=== PATIENT | male | born 1965 | race Caucasian/White ===

== ENCOUNTER 2022-11-09 23:35 | Inpatient (IN) | payer OTHER ==
[~2022-11-09] VITALS: Ht 172.7 cm; Wt 81.6 kg
[2022-11-09 23:46] VITALS: BP 181/107
[2022-11-09] MEDS ORDERED: INTUBATION KIT MC ONE (23:58)
[2022-11-10] VITALS (25 sets, daily range): BP systolic 111–201; BP diastolic 54–103
[2022-11-10] MEDS ORDERED: KETAMINE 500 MG/5 ML VIAL IVP ONE (00:05)
[2022-11-10] MEDS ORDERED: KETAMINE 500 MG/5 ML VIAL ONE (00:06)
[2022-11-10] MEDS ORDERED: NACL 0.9% 1,000 ML IV ONE (00:15)
[2022-11-10] MEDS ORDERED: PROPOFOL 1000 MG/100 ML PREMIX 100 ML IV ONE ×3 (00:21→06:48)
[2022-11-10 01:04] LABS: BASOPHILS % (AUTO) 0.4 % (0.0-2.0); EOSINOPHILS # (AUTO) 0.3 K/uL (0-0.4); EOSINOPHILS % (AUTO) 2.6 % (0.0-4.0); HEMATOCRIT 29.2 % (36-52); HEMOGLOBIN 9.6 g/dL (12.0-18.0); LYMPHOCYTES # (AUTO) 0.7 K/uL (2.0-11.5); LYMPHOCYTES % (AUTO) 5.8 % (20.5-51.1); MEAN CORPUSCULAR HEMOGLOBIN 31 pg (27-31); MEAN CORPUSCULAR HGB CONC 33 g/dL (33-37); MEAN CORPUSCULAR VOLUME 95.6 fL (80-94); MONOCYTES # (AUTO) 0.5 K/uL (0.8-1.0); MONOCYTES % (AUTO) 3.8 % (1.7-9.3); NEUTROPHILS # (AUTO) 11.3 K/uL (1.8-7.7); NEUTROPHILS % (AUTO) 87.4 % (42.2-75.2); PLATELET COUNT (AUTO) 327 K/uL (140-450); RED BLOOD CELL COUNT(AUTO) 3.06 MIL/uL (4.20-6.10); WHITE BLOOD COUNT (AUTO) 12.9 K/uL (4.8-10.8)
--- NOTE | 2022-11-10 01:05 | NUR ---
PT INTUBATED ORALLY DUE TO INABILITY TO RESECURE THE TRACH SITE AT [address] ANH PARSONS. I WAS SIZE 8 AND 22 AT TEETH. CHEST XRAY CONFIRMED POSITIVE PLACEMENT.SEDATION STARTED
[2022-11-10 01:38] LABS: ALBUMIN 2.2 g/dL (3.4-5.0); ANION GAP 10.8 (8-16); ASPARTATE AMINOTRANSFERASE 47 U/L (15-37); CARBON DIOXIDE 28.9 mmol/L (21-32); CHLORIDE 113 mmol/L (98-107); CREATININE 0.6 mg/dL (0.6-1.3); GFR ARICAN-AMERICAN 177 mL/min (>90); GLUCOSE 139 mg/dL (74-106); POTASSIUM 3.7 mmol/L (3.5-5.1); SODIUM SERUM 149 mmol/L (136-145); TOTAL BILIRUBIN 0.3 mg/dL (0.0-1.0); UREA NITROGEN, BLOOD 32 mg/dL (7-18)
[2022-11-10] MEDS ORDERED: [UNRECOGNIZED DRUG - CODE] PO (01:38)
[2022-11-10] MEDS ORDERED: CLOP75TA55 PO (01:38)
[2022-11-10] MEDS ORDERED: LEVE100S26 IV (01:38)
[2022-11-10] MEDS ORDERED: LANS15EC28 PO (01:38)
[2022-11-10] MEDS ORDERED: ATOR40TA PO (01:38)
[2022-11-10] MEDS ORDERED: AMLO10TA PO (01:38)
[2022-11-10] MEDS ORDERED: ASPI-1749 PO (01:38)
[2022-11-10] MEDS ORDERED: HYDR100T49 PO (01:38)
[2022-11-10] MEDS ORDERED: LOSA100T2 PO (01:38)
[2022-11-10] MEDS ORDERED: ACET-1182 PO (01:38)
[2022-11-10] MEDS ORDERED: MAGN400S60 PO (01:38)
[2022-11-10] MEDS ORDERED: DOCU-299 PO (01:38)
[2022-11-10] MEDS ORDERED: TUBE5SOL28 TD (01:38)
[2022-11-10] MEDS ORDERED: HUM SUBQ (01:38)
[2022-11-10] MEDS ORDERED: BISA-218 RC (01:38)
[2022-11-10] MEDS ORDERED: [UNRECOGNIZED DRUG - CODE] SUBQ (01:38)
[2022-11-10] MEDS ORDERED: CARV6.25 PO (01:38)
--- NOTE | 2022-11-10 02:10 | NUR ---
0015 pt came in by paramedics from [facility]. pt had pulled out his trach and facility could not put it back in.dr camacho replaced trach but vent was unable to give volumes and pt was hard to bag. pt needed to be orally intubated. size 7.0 tube at 22lip. pt was put on prvc 18 vt 600 peep5 fio2 at 100%. pt was lavaged and red bloody secretions on return. pt was getting good volumes on vent post sxning
[2022-11-10] MEDS ORDERED: NACL 0.9% 1,000 ML IV SCH (02:55)
[2022-11-10] MEDS ORDERED: PIPERACILLIN/TAZOBACTAM 3.375 GM in DEXTROSE 5% 50 ML IV ONE (02:55)
[2022-11-10] MEDS ORDERED: MAGNESIUM OXIDE 400 MG TAB PO PRN (02:55)
[2022-11-10] MEDS ORDERED: POTASSIUM CHLORIDE 10 MEQ TABER PO PRN (02:55)
[2022-11-10] MEDS ORDERED: MORPHINE SULFATE 4 MG/ML SYR IVP PRN (02:55)
[2022-11-10] MEDS ORDERED: MAG SULF 2000 MG/WATER PREMIX 50 ML IV PRN (02:55)
[2022-11-10] MEDS ORDERED: KCL 20 MEQ IN 100 mL PREMIX 200 ML IV PRN (02:55)
[2022-11-10] MEDS ORDERED: ACETAMINOPHEN 325 MG TAB PO PRN (02:55)
[2022-11-10] MEDS ORDERED: VANCOMYCIN PER PHARMACY MC PRN (02:55)
[2022-11-10] MEDS ORDERED: fentaNYL citrate 1 MG in NACL 0.9% 80 ML IV PRN (03:00)
--- NOTE | 2022-11-10 03:14 | NUR ---
lowered fio2 to 50%
[2022-11-10] MEDS ORDERED: VANCOMYCIN 1GM/DEXT 5% PREMIX 200 ML IV SCH (04:00)
--- NOTE | 2022-11-10 04:38 | NUR ---
RECEIVED PT. FROM ER, REPORT GIVEN BY TEODORO POOLE. PT. INTUBATED WITH VENT SETTING A/C PRVC RATE 18, TV 600, FIO2 40%, PEEP 4. BILATERAL LUNG SOUNDS HYPOACTIVE. ON SINUS RHYTHM ON THE MONITOR. IV 20G TO LEFT UPPER ARM, INFUSING PROPOFOL DRIP AT 30MCG/KG/MIN. IV TO RIGHT AC 20G RUNNING NS AT 80 ML/HR. PT. WITH GASTRIC TUBE CLAMPED, PT. NPO ORDERED. ABDOMINAL SOUNDS HYPOACTIVE. SKIN INTACT. ON BILATERAL SOFT WRIST RESTRAINT. CONDOM CATHETER INTACT AND PATENT WITH YELLOW COLOR URINE. CT OF THE CHEST WITHOUT CONTRAST DONE IN ER. MRSA NARES SENT TO THE LAB. PLACED PT. IN COMFORTABLE POSITION. PROVIDED SAFE AND QUIET ENVIRONMENT. WILL CONTINUE TO MONITOR.
--- NOTE | 2022-11-10 04:46 | NUR ---
Patient will be admitted to care of DR MA. Admited to ICU. Will go to room 2. Belongings list completed. Report to ROSE VALERIO.
--- NOTE | 2022-11-10 05:00 | NUR ---
0437 TRANSFERED PT TO ICU BED 2 ON CARESCAPE VENT.LOWERED FIO2 TO 40%. PT STABLE ON VENT
[2022-11-10] MEDS: PIPERACILLIN/TAZOBACTAM 3.375 GM in DEXTROSE 5% 50 ML IV SCH ×3 (06:00→18:07)
[2022-11-10] MEDS ORDERED: PIPERACILLIN/TAZOBACTAM 3.375 GM VIAL IV ONE (06:38)
[2022-11-10] MEDS: PROPOFOL 1000 MG/100 ML PREMIX 100 ML IV PRN ×2 (07:28→18:38)
--- NOTE | 2022-11-10 07:35 | NUR ---
ENDORSED PT. TO ANGELA MCKENNA RN FOR CONTINUITY OF CARE.
--- NOTE | 2022-11-10 07:40 | NUR ---
RECEIVED PT INTUABATED 7.0/25 LIP. TOLERATING VENT SETTINGS. NSR ON MONITOR. CONDOM CATH FC DRAINING TO GRAVITY. IV INFUSING PROPOFOL AND FLUIDS PER ORDER. NAD.
[2022-11-10] MEDS ORDERED: VANCOMYCIN 1,500 MG in DEXTROSE 5% 500 ML IV SCH (08:00)
[2022-11-10] MEDS ORDERED: ROCURONIUM 50 MG/5 ML VIAL IV ONE (08:00)
--- NOTE | 2022-11-10 09:11 | NUR ---
PATIENT HAS BEEN SCREENED AND CATEGORIZED HIGH NUTRITION RISK. PATIENT WILL BE SEEN WITHIN 1-2 DAYS OF ADMISSION. FNS REFERRAL RECEIVED FOR INTUBATION ON 11/10/22. REVIEWED BY EMMA MENDOZA RD
--- NOTE | 2022-11-10 09:11 | NUR ---
RADIOLOGIST CALLED RESULTS OF SMALL BILATERAL PNEUMO LESS THAN 5% DR MENDOZA MADE AWARE. PENDING FURTHER ORDERS.
[2022-11-10] MEDS: PANTOPRAZOLE 40 MG INJ VIAL IVP SCH (09:20)
--- NOTE | 2022-11-10 09:31 | NUR ---
DR AGUILA AT BEDSIDE, MADE AWARE OF RADIOLOGIST FINDINGS. NEW ORDERS NOTED.
--- NOTE | 2022-11-10 12:00 | NUR ---
RIGHT AC IV NOTED INFILTRATED. IV REMOVED ARM ELEVATED WITH WARM COMPRESS
--- NOTE | 2022-11-10 15:31 | NUR ---
11/10/22 INITIAL ASSESSMENT COMPLETED PLEASE REFER TO NUTRITION ASSESSMENT UNDER CARE ACTIVITY FOR ESTIMATED NUTRITIONAL NEEDS. 1. RECOMMEND GLUCERNA 1.2 WITH A GOAL RATE OF 55ML/HR -FWF: 150ML Q6H OR PER MD -START AT 20ML/HR AND INCREASE BY 10ML Q4H TOLERATED -WITH PROPOFOL @ 15.758ML/HR, PT WILL RECEIVE 2000KCAL AND 79G PROTEIN MEETING 95% OF ESTIMATED KCAL AND 100% OF ESTIMATED PROTEIN NEEDS; ADEQUATE 2. MONITOR GASTRIC RESIDUALS, GI SYMPTOMS AND NUTRITION-RELATED LAB VALUES 3. RD TO FOLLOW-UP 2-3 DAYS, HIGH RISK EMMA MENDOZA RD
--- NOTE | 2022-11-10 16:21 | NUR ---
DC PLANNING ADMITTED TO ICU A 57Y.O. MALE PATIENT FOR HYPOXIA,RESP.FAILURE ,ACUTE TRACHEOSTOMY DISLODGEMENT .HX OF RECENT CVA FROM [facility] AND RECENT ADMISSION AT [facility]/P TRACHEOSTOMY 11/04/22. 11/[address] SHOWS BILATERAL PNEUMONIA. ON VANCO AND PIPERACILLIN.PULMO,CARDIO FOLLOWING.INTUBATED .ON PROPOFOL DRIP.DC PLAN TENTATIVE DISCHARGE BACK TO [facility] WHEN PATIENT RESPONDS TO [place].CM TO FOLLOW. Addendum: 11/12/22 at 1519 by BRIGITTE GUERRERO CM DC PLANNING STILL INTUBATED. OPENS EYES WHEN NAME IS CALLED.ON PROPOFOL DRIP.SON AT BEDSIDE.[facility] GIVEN FOR SUBACUTE FACILITY PLACEMENT.SON DOES NOT WANT HIS DAD TO GO BACK TO [facility].SCHEDULED FOR TRACHEOSTOMY IN AM.CM TO FOLLOW. Addendum: 11/16/22 at 1706 by BRIGITTE GUERRERO CM DC PLANNING TRACHEOSTOMY NOT DONE.TRACHEOSTOMY UNSUCCESSFUL.PATIENT REQUIRES A HIGHER LEVEL OF CARE FOR TRACHEOSTOMY REPAIR.CLINICALS FAXED TO [facility] AND [facility] AND [facility] NOT ACCEPTING TRANSFER.[facility] NOT DOING ABOVE REPAIR.[facility] (WILL CALL) ARRANGED PENDING TRANSFER HOSPITAL ACCEPTANCE.UNIT INFORMED. Addendum: 11/16/22 at 1709 by BRIGITTE GUERRERO CM DC PLANNING LATE ENTRY SPOKE WITH MESERET DOUGLAS AND UPDATED OF PATIENT'S PLAN FOR TRANSFER TO HIGHER LEVEL OF CARE. Addendum: 11/17/22 at 1050 by BRIGITTE GUERRERO CM DC PLANNING GOT A CALL FROM TRANSFER CENTER AT [place] AROUND 0900.[place] IS IN FULL CAPACITY THEN MESSAGE TAKEN FROM [facility] AT SAME HOS[facility] AROUND 1000 .STILL REVIEWING THE CHART AND ASKED FOR DR. LYNETTE PEREZ'S PHONE NUMBER. Addendum: 11/18/22 at 1058 by BRIGITTE GUERRERO CM DC PLANNING CLINICALS FAXED TO [facility] AND [facility] .AWAITING CALL BACK. PATIENT ON TUBE FEEDS,ZOSYN AND PROPOFOL DRIP.CM TO FOLLOW. Addendum: 11/18/22 at 1616 by BRIGITTE GUERRERO CM DC PLANNING PATIENT IS EXTUBATED.ON 35L-28%NC .TUBE FEEDINGS IN PROGRESS. AT BEDSIDE.MESERET DOUGLAS UPDATED OF PATIENT'S CONDITION.CM TO FOLLOW. , Addendum: 11/19/22 at 1240 by BRIGITTE GUERRERO CM DC PLANNING ON HI FLOW O2 AT 25 LITERS-28% .PT SEEN AND NO DISTRESS NOTED.NO SURGICAL INTERVENTION INDICATED FOR NOW.DC PLAN -BACK TO SUBACUTE WHEN PATIENT CONTINUES TO IMPROVE.WILL FOLLOW. Addendum: 11/20/22 at 0915 by BRIGITTE GUERRERO CM DC PLANNING DOWNGRADED TO TELEMETRY STATUS 11/19/22 THEN TRANSFERRED TO TELEMETRY UNIT .STILL ON HI FLOW 25L-28% FIO2.DC PLAN-FOR TRANSFER TO [facility]ACUTE FACILITY WHEN ACCEPTED[place] [place]SF[place].CM TO FOLLOW. Addendum: 11/20/22 at 1114 by BRIGITTE CESAR CM DC PLANNING PT IS ON RA .ALERT AND FOLLOWS COMMAND.WITH RIGHT SIDED WEAKNESS. TRACH STOMA ALMOST CLOSING.DISCUSSED WITH THE DC PLAN FOR SNF VS .SUBACUTE.PT CAN GO TO SNF.PT EVAL REQUESTED.FAMILY TO BE NOTIFIED OF THE DC PLAN.CM TO FOLLOW. Addendum: 11/20/22 at 1238 by BRIGITTE GUERRERO CM DC PLANNING LATE ENTRY: TALKED TO SON ON THE PHONE RE SNF PLACEMENT.REQUESTING [facility] FOR HIS DAD.CLINICALS FAXED TO SAME SNF. Addendum: 11/23/22 at 1143 by BRIGITTE GUERRERO CM DC PLANNING [facility] DENIED PATIENT'S TRANSFER.PATIENT NEEDS LOWER LEVEL OF REHAB.MILA FROM [facility] TO UPDATE THE SN.WILL LOOK FOR OTHER [facility] SNF.CM TO FOLLOW. Addendum: 11/23/22 at 1357 by Usha Joshi RN DC PLANNING: CM SPOKE WITH PATIENT'S AND SON NOTIFIED THEM [facility] DECLINED PATIENT. FAMILY ACCEPTED THE DECISION AND AGREED TO GO TO SNF HOWEVER REQUESTED THE SNF TO BE CLOSE TO [place]. [facility] CM TO FOLLOW Addendum: 11/23/22 at 1620 by Usha Joshi RN DC PLANNING: RECEIVED A CALL FROM [facility] SPOKE WITH [facility] STATED UNABLE TO TAKE PATIENT, TAYA MCFADDENNAS STILL REVIEWING. FAXED TO [facility], [facility], AND [facility]I [facility]. CM TO FOLLOW Addendum: 11/24/22 at 1225 by ALLAN PETIT CM FAXED TO: [facility], [facility], [facility]. WILL FOLLOW UP WHEN I GET FAX CONFIRMATION. Addendum: 11/24/22 at 1503 by Usha Joshi RN DC PLANNING: RECEIVED A CALL FROM [facility] M[facility]RA SPOKE WITH GELA STATED LONG PATIENT HAS A DC PLAN AFTER SNF WILL ACCEPT PATIENT. CM SPOKE WITH SON KINGSTON AND PT'S THE PLAN IS TO TAKE HIM HOME ONCE THERAPY IS DONE. CALLED [facility] FOR AUTHORIZATION. PATIENT CAN GO TO ROOM 111A AWAITING FOR AUTH. CM TO FOLLOW
--- NOTE | 2022-11-10 17:00 | NUR ---
PT RESTING NO CHANGES NOTED.
--- NOTE | 2022-11-10 18:56 | NUR ---
SPOUSE AT BEDSIDE UPDATED ON CARE. NAD.
--- NOTE | 2022-11-10 19:15 | NUR ---
ASSUMED CARE OF PT.INITIAL ASSESSMENT COMPLETED.ORALLY INTUBATED.AC/PRVC MODE FIO2 40% [id number] RATE 16 PEEP 5.W/PERIPHERAL IV TO MONY G20 INFUSING PROPOFOL AT 30MCG/KG/MIN.DRY WT 89KG.AND LT F/A G 20 INFUSING NS AT ML/HR.W/GTUBE IN PLACE, 40ML RESIDUALS NOTED.ON CONTINUOUS TF GLUCERNA 1.2 ORDERED.W/CONDOM CATHETER ALSO INPLACE, NO URINE OUTPUT NOTED TO DRAINAGE BAG.FLACC 0.BILATERAL SOFT WRIST RESTRAINTS ALSO NOTED.NO INJURIES NOTED AT THIS TIME.WILL CONTINUE TO CLOSELY MONITOR PT.
[2022-11-10] MEDS ORDERED: VANCOMYCIN 1.25GM PREMIX 250 ML IV SCH (20:00)
--- NOTE | 2022-11-10 20:00 | NUR ---
VISITED BY , UPDATED ON PTS PRESENT CONDITION.QUESTIONS ANSWERED
[2022-11-10] MEDS: carvediloL 6.25 MG TAB GT SCH (20:55)
[2022-11-10] MEDS: levETIRAcetam 100 MG/ML ORASYR GT SCH (20:56)
--- NOTE | 2022-11-10 22:28 | NUR ---
PT APPEARS COMFORTABLE.FLACC 0.REPOSITIONED.
[2022-11-11] VITALS (26 sets, daily range): BP systolic 118–175; BP diastolic 57–76
--- NOTE | 2022-11-11 | NUR ---
AFEBRILE,NO SOB NOTED ON FIO2 40% ETT/VENT.ORAL CARE USING VAP KIT RENDERED.THICK WHITISH SECRETIONS NOTED.FLACC 0.REPOSITIONED.
[2022-11-11] MEDS: PIPERACILLIN/TAZOBACTAM 3.375 GM in DEXTROSE 5% 50 ML IV SCH ×4 (00:25→17:24)
[2022-11-11] MEDS: PROPOFOL 1000 MG/100 ML PREMIX 100 ML IV PRN ×3 (01:00→16:23)
--- NOTE | 2022-11-11 02:30 | NUR ---
PTS CONDITION REMAINS UNCHANGED.NO SOB NOTED.NO PAIN NOTED.REPOSITIONED.
--- NOTE | 2022-11-11 04:00 | NUR ---
PT AFEBRILE.STILL ON FIO2 40%/ETT TO VENT.NO SOB NOTED.FLACC 0.
[2022-11-11 05:22] LABS: BASOPHILS % (AUTO) 0.1 % (0.0-2.0); EOSINOPHILS # (AUTO) 0.4 K/uL (0-0.4); EOSINOPHILS % (AUTO) 3.5 % (0.0-4.0); HEMATOCRIT 22.4 % (36-52); HEMOGLOBIN 7.6 g/dL (12.0-18.0); LYMPHOCYTES # (AUTO) 1.2 K/uL (2.0-11.5); MEAN CORPUSCULAR HEMOGLOBIN 32 pg (27-31); MEAN CORPUSCULAR HGB CONC 34 g/dL (33-37); MEAN CORPUSCULAR VOLUME 94.4 fL (80-94); MONOCYTES # (AUTO) 0.5 K/uL (0.8-1.0); MONOCYTES % (AUTO) 5.1 % (1.7-9.3); NEUTROPHILS # (AUTO) 8.2 K/uL (1.8-7.7); NEUTROPHILS % (AUTO) 79.3 % (42.2-75.2); PLATELET COUNT (AUTO) 258 K/uL (140-450); RED BLOOD CELL COUNT(AUTO) 2.38 MIL/uL (4.20-6.10); WHITE BLOOD COUNT (AUTO) 10.3 K/uL (4.8-10.8)
--- NOTE | 2022-11-11 05:30 | NUR ---
MORNING CARE DONE.SECRETIONS SUCTIONED, MODERATE AMT OF CREAMY SECRETIONS/RTT AND ORAL.PT REPOSITIONED.
[2022-11-11 06:06] LABS: ALBUMIN 1.8 g/dL (3.4-5.0); ANION GAP 12.4 (8-16); CARBON DIOXIDE 25.9 mmol/L (21-32); CREATININE 0.7 mg/dL (0.6-1.3); POTASSIUM 3.3 mmol/L (3.5-5.1); TOTAL BILIRUBIN 0.3 mg/dL (0.0-1.0)
--- NOTE | 2022-11-11 07:15 | NUR ---
Received pt sedated. ETT to vent settings AC PRVC TV 550 rate 16 PEEP 5 FiO2@40%. Sinus rhythm on monitor. G-tube intact and patent infusing Glucerna 1.2@55ml/hr with FWF 150 Q6hr. Condom catheter in place draining to bedside drainage. Peripheral IV 20 gauge on left upper arm intact and patent infusing propofol @30mcg/kg/min. Peripheral IV 20 gauge on left hand intact and patent infusing NS@TKO. Bilat soft wrist restraints in place. Safety precautions in place.
--- NOTE | 2022-11-11 07:20 | NUR ---
REPORT GIVEN TO TRISTAN VALERIO FOR CONTINUITY OF CARE
[2022-11-11] MEDS: carvediloL 6.25 MG TAB GT SCH ×2 (08:43→20:37)
[2022-11-11] MEDS: ATORVASTATIN 20 MG TAB PO SCH (08:43)
[2022-11-11] MEDS: levETIRAcetam 100 MG/ML ORASYR GT SCH ×2 (08:44→20:37)
[2022-11-11] MEDS: DOCUSATE 100 MG/10 ML UDC PO SCH (08:44)
[2022-11-11] MEDS: amLODIPine 5 MG TAB PO SCH (08:44)
[2022-11-11] MEDS: LOSARTAN 50 MG TAB PO SCH (08:44)
[2022-11-11] MEDS: BROMOCRIPTINE 2.5 MG TAB GT SCH (08:45)
[2022-11-11] MEDS: PANTOPRAZOLE 40 MG INJ VIAL IVP SCH (08:45)
[2022-11-11] MEDS ORDERED: ASPIRIN 81 MG TAB.CHEW GT SCH (09:00)
[2022-11-11] MEDS ORDERED: CLOPIDOGREL 75 MG TAB GT SCH (09:00)
--- NOTE | 2022-11-11 09:00 | NUR ---
Seen and examined by Dr. Cristina. No new orders. Addendum: 11/11/22 at 1126 by Mckenzie Aburto RN Pt to start sedation vacation.
[2022-11-11] MEDS: POTASSIUM CHLORIDE 20% 40 MEQ/15 ML UDC GT PRN (09:07)
--- NOTE | 2022-11-11 09:39 | NUR ---
Contacted Dr. Altman regarding consult for tracheostomy. Dr. Altman made aware of pulmo recommendation.
[2022-11-11] MEDS ORDERED: CLONIDINE HYDROCHLORIDE 0.1 MG TAB GT SCH ×2 (13:50→14:05)
--- NOTE | 2022-11-11 14:19 | NUR ---
PT. WITH LOW GER SCALE AT MODERATE TO HIGH RISK, CONTINUE TO FOLLOW PRESSURE INJURY PREVENTION INTERVENTIONS. -POSITIONING: TURN AND REPOSITION PATIENT Q 2H OR SOONER USE PILLOWS TO KEEP BONY PROMINENCES FROM DIRECT CONTACT WITH SURFACES USE REPOSITIONING WEDGES TO PROVIDE 30-DEGREE ANGLE FOR SIDE LYING POSITIONS OFFLOADING OR FOAM DRESSING TO ALL TUBING TO PREVENT MEDICAL DEVICES RELATED PRESSURE INJURY -RE-EVALUATING AND MANAGING INCONTINENCE MONITOR SKIN CONDITION DURING POSITION CHANGE DO NOT MASSAGE REDNESS, BONY PROMINENCES FREQUENT FLORENCE-CARE AND PROVIDE BARRIER CREAMS PRN IF SOILING MOISTURE CONTROL BY OFFER BED MURRAY/URINAL /ABSORBENT PAD TO WICK AND HOLD MOISTURE KEEP SKIN DRY AND PROTECT FROM FRICTION -MANAGE FRICTION/SHEAR/MOBILITY KEEP HOB AT THE LOWEST LEVEL OF ELEVATION NO MORE THAN 30 DEGREE UNLESS OTHERWISE CONTRAINDICATED USE LIFT SHEET OR TRANSFER DEVICE TO MOVE PATIENT AND PREVENT LATERAL SHEER. PROTECT HEELS, ELBOWS BONY PROMINENCES WITH SKIN BERRIES OR FOAM DRESSING IF EXPOSED TO FRICTION OFFLOAD BILATERAL HEELS BY PLACING PILLOWS UNDER CALVES AT ALL TIMES, UNLESS OTHERWISE CONTRAINDICATED -PRESSURE REDISTRIBUTION SURFACE THERAPY CAROLE ISOFLEX MATTRESS -NUTRITION: PLEASE FOLLOW RD RECOMMENDATIONS AND OFFER NUTRITION SUPPLEMENTS IF ORDERED. PLEASE CONTACT WOUND CARE NURSE FOR ANY QUESTION AND CHANGE OF WOUND CONDITION.
--- NOTE | 2022-11-11 16:30 | NUR ---
FRANKIE Pardo at bedside examining patient. Reported pitting edema on right upper and lower extremities.
[2022-11-11] MEDS: BLOOD GLUCOSE MONITORING 1 DEV DEV FS SCH (17:29)
[2022-11-11] MEDS: INSULIN LISPRO SLIDING SCALE 100 UNITS/ML VIAL SUBQ PRN (17:30)
--- NOTE | 2022-11-11 19:13 | NUR ---
Endorsed to shift lab technician nurse Jeaneth for continuity of care.
--- NOTE | 2022-11-11 19:30 | NUR ---
ASSUMED CARE OF PT.INITIAL ASSESSMENT COMPLETED.ORALLY INTUBATED.AC/PRVC MODE FIO2 24% TV550 RATE 16 PEEP 5.W/PERIPHERAL IV TO MONY G20 INFUSING PROPOFOL AT 15MCG/KG/MIN.DRY WT 89KG.AND LT HAND G 20 INFUSING NS AT 10 ML/HR.W/GTUBE IN PLACE, NO RESIDUALS NOTED.ON CONTINUOUS TF GLUCERNA 1.2 ORDERED.W/CONDOM CATHETER ALSO IN PLACE, NO URINE OUTPUT NOTED TO DRAINAGE BAG AT THIS TIME.FLACC 0.BILATERAL SOFT WRIST RESTRAINTS ALSO NOTED.NO INJURIES NOTED AT THIS TIME.WILL CONTINUE TO CLOSELY MONITOR PT.FALL PRECAUTION IN PLACE
--- NOTE | 2022-11-11 19:35 | NUR ---
DR PEREZ IN THE UNIT; NEW ORDER TO DC ASPIRIN AND PLAVIX; PT FOR TRACHEOSTOMY PLACEMENT; PER MD, HE MIGHT DO THE SURGERY ON WEDNESDAY OR WEDNESDAY.
--- NOTE | 2022-11-11 20:00 | NUR ---
PTS FAMILY AT BEDSIDE, UPDATED ON PTS PRESENT CONDITION.QUESTIONS ANSWERED.
--- NOTE | 2022-11-11 22:17 | NUR ---
PT APPEARS COMFORTABLE.STILL SEDATED.STILL ORALLY INTUBATED FIO2 24%.NO SOB NOTED.FLACC 0
[2022-11-12] VITALS (20 sets, daily range): BP systolic 114–166; BP diastolic 56–82
--- NOTE | 2022-11-12 | NUR ---
ORAL CARE USING VAP KIT RENDERED.PT ON DAILY PROTONIX FOR GI PROPHYLAXIS, DVT PROPHYLAXIS DC'D BY DR PEREZ, PT FOR TRACHEOSTOMY PLACEMENT.FLACC 0
[2022-11-12] MEDS: PIPERACILLIN/TAZOBACTAM 3.375 GM in DEXTROSE 5% 50 ML IV SCH ×4 (00:03→17:36)
[2022-11-12] MEDS: INSULIN LISPRO SLIDING SCALE 100 UNITS/ML VIAL SUBQ PRN ×2 (00:05→17:37)
[2022-11-12] MEDS: BLOOD GLUCOSE MONITORING 1 DEV DEV FS SCH ×4 (00:09→17:37)
--- NOTE | 2022-11-12 02:54 | NUR ---
PTS CONDITION REMAINS UNCHANGED.PT APPEARS COMFORTABLE.NO RESP DISTRESS NOTED ON VENT FIO2 24%.FLACC 0
[2022-11-12] MEDS: PROPOFOL 1000 MG/100 ML PREMIX 100 ML IV PRN ×2 (05:07→17:31)
--- NOTE | 2022-11-12 05:26 | NUR ---
MORNING CARE DONE.ORAL CARE RENDERED.SKIN REMAINS INTACT.FLACC 0.REPOSITIONED
[2022-11-12 05:30] LABS: BASOPHILS % (AUTO) 0.3 % (0.0-2.0); EOSINOPHILS # (AUTO) 0.4 K/uL (0-0.4); EOSINOPHILS % (AUTO) 4.5 % (0.0-4.0); HEMATOCRIT 23.3 % (36-52); HEMOGLOBIN 7.8 g/dL (12.0-18.0); LYMPHOCYTES # (AUTO) 1.1 K/uL (2.0-11.5); LYMPHOCYTES % (AUTO) 13.1 % (20.5-51.1); MEAN CORPUSCULAR HEMOGLOBIN 31 pg (27-31); MEAN CORPUSCULAR HGB CONC 34 g/dL (33-37); MEAN CORPUSCULAR VOLUME 93.7 fL (80-94); MONOCYTES # (AUTO) 0.5 K/uL (0.8-1.0); MONOCYTES % (AUTO) 6.3 % (1.7-9.3); NEUTROPHILS # (AUTO) 6.2 K/uL (1.8-7.7); NEUTROPHILS % (AUTO) 75.8 % (42.2-75.2); PLATELET COUNT (AUTO) 254 K/uL (140-450); RED BLOOD CELL COUNT(AUTO) 2.48 MIL/uL (4.20-6.10); RED CELL DISTRIBUTION WIDTH 14.6 % (11.6-13.7); WHITE BLOOD COUNT (AUTO) 8.1 K/uL (4.8-10.8)
[2022-11-12] MEDS: POTASSIUM CHLORIDE 20% 40 MEQ/15 ML UDC GT PRN (06:39)
--- NOTE | 2022-11-12 06:40 | NUR ---
K 3.4; POTASSIUM CHLORIDE ADMINISTERED ORDERED
--- NOTE | 2022-11-12 07:30 | NUR ---
Received pt sedated. ETT to vent settings AC PRVC TV 550 rate 16 PEEP 5 FiO@@24%. Sinus rhythm on monitor. G-tube intact and infusing Glucerna 1.2 @55ml/hr with FWF 150 Q6hr. Condom catheter in place draining to gravity. Peripheral IV 20 gauge on left upper arm intact and infusing Propofol@15mcg/kg/min. Peripheral IV 20 gauge on left hand intact and infusing NS@TKO. Bilat soft wrist restraints in place with no signs of injury. Safety precautions in place.
--- NOTE | 2022-11-12 07:57 | NUR ---
RECEIVED ON A SkyonicAPE R860 VENTILATOR PLUGGED INTO RED OUTLET TOLERATING WELL WITHOUT ADVERSE REACTIONS NOTED TO AN ENDOTRACHEAL TUBE #7.0 SECURED AT 24cm TEETH/GUM LINE WITH AN ANCHOR FAST CUFF PRESSURE CHECKED NOTED AMBU BAG AT BEDSIDE RESTING COMFORTABLE EQUAL CHEST RISE ENDOTRACHEAL SUCTION FOR LARGE PALE YELLOW/HAZY SECRETIONS AIRWAY PATENT
[2022-11-12] MEDS: DOCUSATE 100 MG/10 ML UDC PO SCH (08:26)
[2022-11-12] MEDS: levETIRAcetam 100 MG/ML ORASYR GT SCH ×2 (08:26→20:30)
[2022-11-12] MEDS: PANTOPRAZOLE 40 MG INJ VIAL IVP SCH (08:27)
[2022-11-12] MEDS: LOSARTAN 50 MG TAB PO SCH (08:29)
[2022-11-12] MEDS: CLONIDINE HYDROCHLORIDE 0.1 MG TAB GT SCH ×2 (08:29→17:09)
[2022-11-12] MEDS: BROMOCRIPTINE 2.5 MG TAB GT SCH (08:30)
[2022-11-12] MEDS: carvediloL 6.25 MG TAB GT SCH ×2 (08:30→20:30)
[2022-11-12] MEDS: ATORVASTATIN 20 MG TAB PO SCH (08:30)
[2022-11-12] MEDS: amLODIPine 5 MG TAB PO SCH (08:30)
--- NOTE | 2022-11-12 09:33 | NUR ---
Dr. Cristina at bedside examining patient. Reported right arm and right ankle pitting edema. Reported high BP readings during process development associate.
[2022-11-12 09:49] LABS: TOTAL BILIRUBIN 0.2 mg/dL (0.0-1.0)
--- NOTE | 2022-11-12 09:52 | NUR ---
STABLE GOOD CHEST RISE ENDOTRACHEAL SUCTION FOR SMALL THIN YELLOW/HAZY SECRETIONS AIRWAY PATENT
[2022-11-12 10:00] LABS: ALBUMIN 1.8 g/dL (3.4-5.0)
[2022-11-12] MEDS ORDERED: FUROSEMIDE 20 MG/2 ML VIAL IVP SCH (10:00)
[2022-11-12 10:18] LABS: ANION GAP 14.1 (8-16); POTASSIUM 3.4 mmol/L (3.5-5.1)
[2022-11-12 10:19] LABS: CARBON DIOXIDE 23.3 mmol/L (21-32); CREATININE 0.6 mg/dL (0.6-1.3)
--- NOTE | 2022-11-12 11:50 | NUR ---
Seen and examined by Dr. Miller. New order for NPO at midnight for possible tracheostomy in AM.
--- NOTE | 2022-11-12 13:00 | NUR ---
DC PLANNING ASSESSMENT COMPLETE PLEASE REFER TO ASSESSMENT FOR ADDITIONAL DETAILS CORNELIA, PTS SON REPORTS TENTATIVE DC PLAN IS TO IDENTIFY NEW SUBACUTE PLACEMENT FOR PT. CORNELIA REQUESTING PT NOT RETURN [place] [facility] ENDORSED TO CM, CM TO SPEAK WITH FAMILY ON ALTERNATIVE PLACEMENT OPTIONS. Addendum: 11/13/22 at 0905 by Ken BERKOWITZ Amended: Links added.
--- NOTE | 2022-11-12 13:58 | NUR ---
social media community manager Usha at bedside speaking with pt son Dillon.
--- NOTE | 2022-11-12 13:58 | NUR ---
RESTING COMFORTABLY GOOD CHEST RISE ENDOTRACHEAL SUCTION FOR MODERATE THIN YELLOW SECRETIONS AIRWAY PATENT
--- NOTE | 2022-11-12 19:12 | NUR ---
Endorsed to night auditor nurse for continuity of care.
--- NOTE | 2022-11-12 19:30 | NUR ---
REPORT FROM TRISTAN VALERIO.ASSUMED CARE OF PT.INITIAL ASSESSMENT COMPLETED.ETT TO VENT.AC/PRVC MODE FIO2 24% TV550 RATE 16 PEEP 5.W/PERIPHERAL IV TO MONY G20 INFUSING PROPOFOL AT 15MCG/KG/MIN.DRY WT 89KG.AND LT HAND G20 INFUSING NS AT 10 ML/HR.W/GTUBE IN PLACE, NO RESIDUALS NOTED.ON CONTINUOUS TF GLUCERNA 1.2 ORDERED.W/CONDOM CATHETER ALSO IN PLACE, NO URINE OUTPUT NOTED TO DRAINAGE BAG AT THIS TIME.FLACC 0.BILATERAL SOFT WRIST RESTRAINTS ALSO NOTED.NO INJURIES NOTED AT THIS TIME.WILL CONTINUE TO CLOSELY MONITOR PT.FALL PRECAUTION IN PLACE
--- NOTE | 2022-11-12 20:30 | NUR ---
DR PEREZ AT BEDSIDE, SPOKE WITH PTS SON LYNETTE REGARDING TRACHEOSTOMY TO BE DONE ON WEDNESDAY INSTEAD OF TOMORROW, CHARGE NURSE MARINA VALERIO AWARE
--- NOTE | 2022-11-12 21:00 | NUR ---
BM NOTED,LARGE AMT OF WATERY BROWNISH STOOL,PT CLEANED.REPOSITIONED.FLACC 0
[2022-11-13] VITALS (30 sets, daily range): BP systolic 87–182; BP diastolic 44–88
--- NOTE | 2022-11-13 | NUR ---
ORAL CARE USING VAP KIT RENDERED.MODERATE AMT OF WHITISH SECRETIONS SUCTIONED.AFEBRILE.REPOSITIONED.FLACC 0
[2022-11-13] MEDS: INSULIN LISPRO SLIDING SCALE 100 UNITS/ML VIAL SUBQ PRN ×3 (00:08→18:14)
[2022-11-13] MEDS: BLOOD GLUCOSE MONITORING 1 DEV DEV FS SCH ×5 (00:09→23:56)
[2022-11-13] MEDS: PIPERACILLIN/TAZOBACTAM 3.375 GM in DEXTROSE 5% 50 ML IV SCH ×5 (00:09→23:49)
--- NOTE | 2022-11-13 02:00 | NUR ---
PT STILL SEDATED, ON PROPOFOL DRIP AT 15MCG/KG/MIN.FLACC 0.
--- NOTE | 2022-11-13 04:00 | NUR ---
MORNING CARE DONE.ORAL CARE USING VAP KIT RENDERED.SECRETIONS SUCTIONED.FLACC 0/REPOSITIONED.
[2022-11-13 04:22] LABS: BASOPHILS % (AUTO) 0.4 % (0.0-2.0); EOSINOPHILS # (AUTO) 0.3 K/uL (0-0.4); EOSINOPHILS % (AUTO) 4.6 % (0.0-4.0); HEMATOCRIT 22.8 % (36-52); HEMOGLOBIN 7.7 g/dL (12.0-18.0); LYMPHOCYTES # (AUTO) 1.2 K/uL (2.0-11.5); MEAN CORPUSCULAR HEMOGLOBIN 32 pg (27-31); MEAN CORPUSCULAR HGB CONC 34 g/dL (33-37); MEAN CORPUSCULAR VOLUME 93.4 fL (80-94); MONOCYTES # (AUTO) 0.4 K/uL (0.8-1.0); MONOCYTES % (AUTO) 6.5 % (1.7-9.3); NEUTROPHILS # (AUTO) 4.1 K/uL (1.8-7.7); NEUTROPHILS % (AUTO) 68.5 % (42.2-75.2); PLATELET COUNT (AUTO) 254 K/uL (140-450); RED BLOOD CELL COUNT(AUTO) 2.44 MIL/uL (4.20-6.10); RED CELL DISTRIBUTION WIDTH 14.7 % (11.6-13.7); WHITE BLOOD COUNT (AUTO) 5.9 K/uL (4.8-10.8)
[2022-11-13 04:57] LABS: ALBUMIN 1.8 g/dL (3.4-5.0); ANION GAP 12.9 (8-16); CARBON DIOXIDE 25.7 mmol/L (21-32); CREATININE 0.6 mg/dL (0.6-1.3); POTASSIUM 3.6 mmol/L (3.5-5.1); TOTAL BILIRUBIN 0.2 mg/dL (0.0-1.0)
[2022-11-13 05:13] LABS: MAGNESIUM 1.9 mg/dL (1.8-2.4)
--- NOTE | 2022-11-13 06:56 | NUR ---
ALL DUE MEDS GIVEN.FLACC 0.PTS CONDITION REMAINS UNCHANGED
--- NOTE | 2022-11-13 07:30 | NUR ---
REVIEWED DR. SHINE AGUILA CRITICAL CARE NOTES ON 11/14/22 "DAILY SEDATION VACATION"; OFF SEDATION AT THIS TIME BY TALA/SCHOOL COMMUNITY RELATIONS COORDINATOR; RECEIVED ON A Future SimpleAPE R860 VENTILATOR PLUGGED INTO RED OUTLET TOLERATING WELL WITHOUT ADVERSE REACTIONS NOTED TO AN ENDOTRACHEAL TUBE #7.9 SECURED AT 24cm TEETH/GUM LINE WITH AN ANCHOR FAST CUFF PRESSURE CHECKED NOTED AMBU BAG AT BEDSIDE RESTING WELL ASLEEP EASILY AWAKENS EQUAL CHEST RISE ENDOTRACHEAL SUCTION FOR COPIOUS FROTHY YELLOW/CLEAR SECRETIONS AIRWAY PATENT
--- NOTE | 2022-11-13 07:35 | NUR ---
PER RT. CAMPOS REQUEST. PT WAS PUT ON SEDATION VACATION. PROPOFOL WAS HOLD SINCE 7:30AM.
--- NOTE | 2022-11-13 07:38 | NUR ---
TOLERATING SEDATION VACATION ASLEEP RESTING COMFORTABLY WITHOUT EVIDENCE OF PULMONARY DISTRESS NOTED GOOD CHEST RISE
[2022-11-13] MEDS: levETIRAcetam 100 MG/ML ORASYR GT SCH ×2 (08:48→20:13)
[2022-11-13] MEDS: DOCUSATE 100 MG/10 ML UDC PO SCH (08:49)
[2022-11-13] MEDS: ATORVASTATIN 20 MG TAB PO SCH (08:50)
[2022-11-13] MEDS: amLODIPine 5 MG TAB PO SCH (08:51)
[2022-11-13] MEDS: LOSARTAN 50 MG TAB PO SCH (08:53)
[2022-11-13] MEDS: carvediloL 6.25 MG TAB GT SCH ×2 (08:58→20:05)
[2022-11-13] MEDS: CLONIDINE HYDROCHLORIDE 0.1 MG TAB GT SCH ×2 (08:58→18:09)
[2022-11-13] MEDS: PANTOPRAZOLE 40 MG INJ VIAL IVP SCH (08:59)
[2022-11-13] MEDS: BROMOCRIPTINE 2.5 MG TAB GT SCH (09:03)
--- NOTE | 2022-11-13 10:39 | NUR ---
REMAINS ON SEDATION VACATION TOLERATING WELL WITHOUT DISTRESS NOTED ASLEEP EASILY AWAKENS GOOD CHEST RISE ENDOTRACHEAL TUBE SUCTION FOR SMALL THIN PALE YELLOW SECRETIONS AIRWAY PATENT
--- NOTE | 2022-11-13 10:45 | NUR ---
RESTING WELL ASLEEP EASILY AWAKENS PLACED ON CPAP TRIAL NOTED NO DISTRESS NOTED GOOD CHEST RISE AIRWAY PATENT TALA/OFFICE MACHINES WIRER NOTIFIED
--- NOTE | 2022-11-13 13:17 | NUR ---
STABLE ASLEEP REMAINS OFF SEDATION TOLERATING CPAP TRIAL WELL NOTED WITHOUT COMPLICATIONS GOOD CHEST RISE ENDOTRACHEAL SUCTION FOR MODERATE THIN PALE YELLOW SECRETIONS AIRWAY PATENT Addendum: 11/13/22 at 1622 by Rico Newton RT TITRATED PRESSURE SUPPORT TO 8cmH2O TALA/ROAD ROLLER OPERATOR NOTIFIED
--- NOTE | 2022-11-13 13:17 | NUR ---
ON OR ABOUT THIS TIME DR. SHINE AGUILA ROUNDING IN ICU; REVIEWED SEDATION VACATION AND CPAP TRIAL; JACKY AGUILA CPAP TRIAL TOLERATED
[2022-11-13] MEDS: ALBUTEROL 0.083% 2.5 MG/3 ML NEBU INH PRN ×2 (15:15→22:06)
--- NOTE | 2022-11-13 15:54 | NUR ---
TOLERATING CPAP TRIAL WITHOUT RESPIRATORY DISTRESS GOOD CHEST RISE ENDOTRACHEAL SUCTION FOR LARGE THIN PALE YELLOW SECRETIONS AIRWAY PATENT
[2022-11-13] MEDS: hydrALAZINE 20 MG/ML VIAL IVP PRN (15:56)
--- NOTE | 2022-11-13 16:35 | NUR ---
DURING AND POST PHYSICAL HYGIENE PATIENT PRESENTING WITH AGITATION/INCREASED WOB GOOD AERATION THROUGHOUT BILATERAL LUNG LEONG AIRWAY PATENT PLACED BACK ON PRVC NOTED; SEDATION 15mcg
--- NOTE | 2022-11-13 16:59 | NUR ---
11/13/22 RD FOLLOW UP COMPLETED PLEASE REFER TO NUTRITION ASSESSMENT UNDER CARE ACTIVITY FOR ESTIMATED NUTRITIONAL NEEDS. 1. MONITOR NPO STATUS 2. WHEN/IF MEDICALLY APPROPRIATE TO RESUME TF, CONTINUE GLUCERNA 1.2 WITH A GOAL RATE OF 55ML/HR -FWF: 150ML Q6H OR PER MD -START AT 20ML/HR AND INCREASE BY 10ML Q4H TOLERATED -WITH PROPOFOL @ 7.8 ML/HR, PT WILL RECEIVE 1789 KCAL AND 79G PROTEIN MEETING 85% OF ESTIMATED KCAL AND 100% OF ESTIMATED PROTEIN NEEDS; ADEQUATE 3. CONSULT RD PRN 4. RD TO FOLLOW-UP 2-3 DAYS, HIGH RISK REVIEWED BY EMMA MENDOZA RD
--- NOTE | 2022-11-13 17:00 | NUR ---
PT URINATED ALL OF BED WITH DIARHEA TOO. DR. GONZALEZ WAS CALLED. F/C AND RECTAL TUBE WAS ORDERED AND INSERTED WIH OTHER RN. PT CARE DONE WITH ALL LINEN CHANGED. FAMILY, BEDSIDE. ALL INFOR UPDATED TO HER.
--- NOTE | 2022-11-13 19:05 | NUR ---
Received report from JENNIFER Urrutia RECRUITMENT AND OUTREACH ASSISTANT. Questions answered
--- NOTE | 2022-11-13 20:00 | NUR ---
Initial assessment done, pt. Has RASS of -2, on bedrest, skin intact, on GT feeding= Glucerna 1.2 @55ml/hr, IVF= Propofol gtts @15mcg/kg/min= 8.01ml/hr on MONY G20, NS@ Tko on Lt. Hand G20, ETT to Vent w/ settings AC/PRVC Rate=16, TV= 550, FiO2=30%, PEEP=5 sating bet. 98-100%, on Ferreira to [place], on Rectal tube.
--- NOTE | 2022-11-13 21:00 | NUR ---
Due medications Given, Tolerated well. Will continue to monitor for any possible adverse reactions.
--- NOTE | 2022-11-13 23:52 | NUR ---
BS= 144mg/dl, NO Coverage needed per Sliding Scale protocol ordered.
[2022-11-14] VITALS (32 sets, daily range): BP systolic 102–162; BP diastolic 51–75
--- NOTE | 2022-11-14 04:15 | NUR ---
Total care given, pericare done, Change gown, Chaulks & Linen, Made Clean, Dry & Comfortable.
[2022-11-14] MEDS: PROPOFOL 1000 MG/100 ML PREMIX 100 ML IV PRN (04:47)
[2022-11-14] MEDS: PIPERACILLIN/TAZOBACTAM 3.375 GM in DEXTROSE 5% 50 ML IV SCH ×2 (06:04→12:08)
--- NOTE | 2022-11-14 06:08 | NUR ---
BS= 146 mg/dl, NO Coverage needed per Sliding Scale protocol ordered.
[2022-11-14] MEDS: BLOOD GLUCOSE MONITORING 1 DEV DEV FS SCH ×3 (06:11→18:26)
[2022-11-14] MEDS: CLONIDINE HYDROCHLORIDE 0.1 MG TAB GT SCH ×3 (08:48→11:41)
[2022-11-14] MEDS: amLODIPine 5 MG TAB PO SCH (08:49)
[2022-11-14] MEDS: ATORVASTATIN 20 MG TAB PO SCH (08:49)
[2022-11-14] MEDS: LOSARTAN 50 MG TAB PO SCH (08:49)
[2022-11-14] MEDS: carvediloL 6.25 MG TAB GT SCH ×2 (08:50→20:34)
[2022-11-14] MEDS: levETIRAcetam 100 MG/ML ORASYR GT SCH ×2 (08:50→20:34)
[2022-11-14] MEDS: BROMOCRIPTINE 2.5 MG TAB GT SCH (08:51)
[2022-11-14] MEDS: PANTOPRAZOLE 40 MG INJ VIAL IVP SCH (08:51)
[2022-11-14] MEDS: DOCUSATE 100 MG/10 ML UDC PO SCH (08:52)
[2022-11-14 10:28] LABS: BASOPHILS % (AUTO) 0.3 % (0.0-2.0); EOSINOPHILS # (AUTO) 0.2 K/uL (0-0.4); EOSINOPHILS % (AUTO) 3.8 % (0.0-4.0); HEMATOCRIT 23.3 % (36-52); HEMOGLOBIN 7.9 g/dL (12.0-18.0); LYMPHOCYTES # (AUTO) 1.1 K/uL (2.0-11.5); LYMPHOCYTES % (AUTO) 18.4 % (20.5-51.1); MEAN CORPUSCULAR HEMOGLOBIN 32 pg (27-31); MEAN CORPUSCULAR HGB CONC 34 g/dL (33-37); MEAN CORPUSCULAR VOLUME 93.4 fL (80-94); MONOCYTES # (AUTO) 0.4 K/uL (0.8-1.0); NEUTROPHILS # (AUTO) 4.3 K/uL (1.8-7.7); NEUTROPHILS % (AUTO) 71.5 % (42.2-75.2); PLATELET COUNT (AUTO) 275 K/uL (140-450); RED BLOOD CELL COUNT(AUTO) 2.49 MIL/uL (4.20-6.10); RED CELL DISTRIBUTION WIDTH 14.7 % (11.6-13.7)
[2022-11-14 10:30] LABS: CARBON DIOXIDE 22.8 mmol/L (21-32); CREATININE 0.7 mg/dL (0.6-1.3); POTASSIUM 3.8 mmol/L (3.5-5.1)
[2022-11-14] MEDS: INSULIN LISPRO SLIDING SCALE 100 UNITS/ML VIAL SUBQ PRN (18:58)
--- NOTE | 2022-11-14 19:30 | NUR ---
RECEIVED BEDSIDE REPORT. PATIENT VENTILATED AND SEDATED. VENTILATOR AC/PC FIO2 30% VT: 550 RATE 16 PEEP 5. MONY PIV G 20 INFUSING PROPOFOL AT 15 MCG/KG/MIN DRY WEIGHT 89KG AND LT HAND G 20 NS AT TKO. G TUBE IN PLACE,NO RESIDUALS. TUBE FEEDING GLUCERNA ORDERED. PARK CATHETER IN PLACE DRAINING SMALL AMOUNT OF CLEAR YELLOW URINE. PT HAS RIGHT SIDED WEAKNESS, LEFT SOFT WRIST RESTRAINT IN PLACE. SMALL STOMA FROM PREVIOUS TRACHEOSTOMY NOTED OTHERWISE SKIN INTACT. FALL PRECAUTION IN PLACE, FLACC 0.WILL CONTINUE TO CLOSELY MONITOR PATIENT.
--- NOTE | 2022-11-14 20:20 | NUR ---
PT FAMILY AT BEDSIDE.
--- NOTE | 2022-11-14 23:45 | NUR ---
RT AT BEDSIDE. FIO2 DECREASED TO 25%, SPO2 97% AT THIS TIME. WILL CONTINUE TO MONITOR.
[2022-11-15] VITALS (27 sets, daily range): BP systolic 101–167; BP diastolic 61–89
[2022-11-15] MEDS: BLOOD GLUCOSE MONITORING 1 DEV DEV FS SCH ×5 (00:28→23:58)
[2022-11-15] MEDS: INSULIN LISPRO SLIDING SCALE 100 UNITS/ML VIAL SUBQ PRN ×2 (00:34→23:56)
--- NOTE | 2022-11-15 04:30 | NUR ---
MORNING CARE DONE.ORAL CARE RENDERED.RECTAL TUBE REMOVED, NO WATERY STOOL NOTED.REPOSITIONED.FLACC 0
[2022-11-15 05:52] LABS: BASOPHILS % (AUTO) 0.3 % (0.0-2.0); EOSINOPHILS # (AUTO) 0.3 K/uL (0-0.4); EOSINOPHILS % (AUTO) 3.5 % (0.0-4.0); HEMATOCRIT 26.4 % (36-52); HEMOGLOBIN 9.1 g/dL (12.0-18.0); LYMPHOCYTES # (AUTO) 1.2 K/uL (2.0-11.5); LYMPHOCYTES % (AUTO) 15.7 % (20.5-51.1); MEAN CORPUSCULAR HEMOGLOBIN 32 pg (27-31); MEAN CORPUSCULAR HGB CONC 34 g/dL (33-37); MEAN CORPUSCULAR VOLUME 92.5 fL (80-94); MONOCYTES # (AUTO) 0.4 K/uL (0.8-1.0); MONOCYTES % (AUTO) 5.7 % (1.7-9.3); NEUTROPHILS # (AUTO) 5.7 K/uL (1.8-7.7); NEUTROPHILS % (AUTO) 74.8 % (42.2-75.2); PLATELET COUNT (AUTO) 306 K/uL (140-450); RED BLOOD CELL COUNT(AUTO) 2.85 MIL/uL (4.20-6.10); RED CELL DISTRIBUTION WIDTH 14.6 % (11.6-13.7); WHITE BLOOD COUNT (AUTO) 7.6 K/uL (4.8-10.8)
[2022-11-15 06:18] LABS: ANION GAP 12.4 (8-16); CARBON DIOXIDE 24.4 mmol/L (21-32); CREATININE 0.7 mg/dL (0.6-1.3); MAGNESIUM 1.9 mg/dL (1.8-2.4); POTASSIUM 3.8 mmol/L (3.5-5.1); TOTAL BILIRUBIN 0.3 mg/dL (0.0-1.0)
[2022-11-15] MEDS: hydrALAZINE 20 MG/ML VIAL IVP PRN (06:22)
--- NOTE | 2022-11-15 06:28 | NUR ---
BP 177/73 ; HYDRALAZINE ADMINISTERED ORDERED.PT STILL SEDATED.ETT TO VENT FIO2 25%.FLACC 0
--- NOTE | 2022-11-15 07:16 | NUR ---
BEDSIDE REPORT GIVEN TO BHAKTI VALERIO.
--- NOTE | 2022-11-15 07:20 | NUR ---
RECEIVED REPORT FROM CHAD. PT. IS ETT TO VENT SETTING AC /PRVC FIO2 25% TV 450 RATE 14 PEEP5 O2 SAT 1005 . ng tube feeding in progress, AB DO MEN SOFT ABDOMEN SOFT ,NO BM AT THE TIME PARK CATH DRAIN CLEAR YELLOW URINE.
[2022-11-15] MEDS: carvediloL 6.25 MG TAB GT SCH ×2 (08:13→20:38)
[2022-11-15] MEDS: levETIRAcetam 100 MG/ML ORASYR GT SCH ×2 (08:14→20:13)
[2022-11-15] MEDS: BROMOCRIPTINE 2.5 MG TAB GT SCH (08:15)
[2022-11-15] MEDS: PANTOPRAZOLE 40 MG INJ VIAL IVP SCH (08:15)
[2022-11-15] MEDS: DOCUSATE 100 MG/10 ML UDC PO SCH (08:16)
[2022-11-15] MEDS: LOSARTAN 50 MG TAB PO SCH (08:17)
[2022-11-15] MEDS: amLODIPine 5 MG TAB PO SCH (08:18)
[2022-11-15] MEDS: ATORVASTATIN 20 MG TAB PO SCH (08:20)
--- NOTE | 2022-11-15 10:30 | NUR ---
SEEN BY DR. MENDOZA AT BED SIDE NO ORDER RECEIVED.
--- NOTE | 2022-11-15 10:45 | NUR ---
SEEN BY DR GONZALEZ NO ORDER RECEIVEDN.
--- NOTE | 2022-11-15 11:00 | NUR ---
REPOSITION, SKINCARE GIVEN ORAL CAREGIVEN.
--- NOTE | 2022-11-15 12:00 | NUR ---
BLOOD GLUCOSE 142 NO INSULIN GIVEN
--- NOTE | 2022-11-15 14:25 | NUR ---
11/15/22 RD FOLLOW UP COMPLETED. PLEASE REFER TO NUTRITION ASSESSMENT UNDER CARE ACTIVITY FOR ESTIMATED NUTRITIONAL NEEDS. 1. MONITOR NPO STATUS 2. WHEN/IF MEDICALLY APPROPRIATE TO RESUME TF, CONTINUE GLUCERNA 1.2 WITH A GOAL RATE OF 55ML/HR -FWF: 150ML Q6H OR PER MD -START AT 20ML/HR AND INCREASE BY 20 ML Q4H TOLERATED -WITH PROPOFOL @ 15 ML/HR, PT WILL RECEIVE 1980 KCAL AND 79G PROTEIN, MEETING 94% OF ESTIMATED KCAL AND 100% OF ESTIMATED PROTEIN NEEDS; ADEQUATE. 3. CONSULT RD PRN 4.RD TO FOLLOW-UP IN 2-3 DAYS PATIENT IS HIGH RISK. YURY CHILD RD
[2022-11-15] MEDS: CLONIDINE HYDROCHLORIDE 0.1 MG TAB GT SCH (17:00)
--- NOTE | 2022-11-15 18:00 | NUR ---
blood glucose 132 NO INSULIN GIVEN.
--- NOTE | 2022-11-15 19:10 | NUR ---
PT VITAL SIGHN STABLE REPORT GIVE O RIA AVLERIO FOR CONTINUITY CARE.
[2022-11-15] MEDS ORDERED: carvediloL 12.5 MG TAB ONE (19:32)
[2022-11-16] VITALS (29 sets, daily range): BP systolic 108–170; BP diastolic 49–80
[2022-11-16] MEDS: PROPOFOL 1000 MG/100 ML PREMIX 100 ML IV PRN ×2 (00:59→21:30)
[2022-11-16] MEDS: hydrALAZINE 20 MG/ML VIAL IVP PRN (01:34)
[2022-11-16] MEDS: MORPHINE SULFATE 2 MG/ML SYR IVP PRN (02:55)
--- NOTE | 2022-11-16 02:58 | NUR ---
bp WAS HIGH LIKE SYTOLIC ABOVE 177 SYSTOLIC BUT REMAIS HIGH AFER 30 MINS SO mORPHINE2 MG iVP WAS GIVEN
[2022-11-16 04:59] LABS: PROTHROMBIN TIME 11.2 secs (10.8-13.4)
[2022-11-16] MEDS: BLOOD GLUCOSE MONITORING 1 DEV DEV FS SCH ×3 (06:19→18:00)
[2022-11-16] MEDS: ALBUTEROL 0.083% 2.5 MG/3 ML NEBU INH PRN (07:20)
--- NOTE | 2022-11-16 07:20 | NUR ---
RECEIVED ON A GiPStechAPE R860 VENTILATOR PLUGGED INTO RED OUTLET TOLERATING WELL WITHOUT COMPLICATIONS NOTED TO AN ENDOTRACHEAL TUBE #7.0 SECURED AT 24cm TEETH/GUM LINE WITH AN ANCHOR FAST CUFF PRESSURE CHECKED NOTED AMBU BAG AT BEDSIDE SEDATED EASILY AWAKENS RESTING COMFORTABLY EQUAL CHEST RISE ENDOTRACHEAL SUCTION FOR LARGE SEMI THICK PALE YELLOW SECRETIONS AIRWAY PATENT
--- NOTE | 2022-11-16 07:30 | NUR ---
RECEIVED PT INTUBATED TOLERATING VENT SETTINGS. NSR ON MONITOR. INFUSING PROPOFOL PER ORDER TOLERATING WELL. FC DRAINING TO GRAVITY. PENDING TRACH PLACEMENT TODAY. NAD. SAFETY MAINTAINED.
--- NOTE | 2022-11-16 07:55 | NUR ---
PLACED ON CPAP TRIAL NOTED TOLERATING WELL WITHOUT ADVERSE REACTIONS NOTED GOOD CHEST RISE AND AERATION THROUGHOUT BILATERAL LUNG LEONG AIRWAY PATENT Addendum: 11/16/22 at 0838 by Rico Newton RT ANGELA/QUALITY CONTROL SPECIALIST NOTIFIED
[2022-11-16] MEDS ORDERED: BUPIVACAINE-MPF/EPI 0.25% 10 ML VIAL INJ ONE (08:30)
--- NOTE | 2022-11-16 08:38 | NUR ---
DR MENDOZA AT BEDSIDE FOR ASSESSMENT. PT TO OR THIS AM FOR TRACH PLACEMENT.
--- NOTE | 2022-11-16 08:40 | NUR ---
TOLERATING CPAP TRIAL NOTED NO DISTRESS NOTED GOOD CHEST RISE
--- NOTE | 2022-11-16 08:41 | NUR ---
CHANGED MODE TO PRVC NOTED; PATIENT BEING PREP FOR TRANSFER TO OPERATING ROOM Addendum: 11/16/22 at 0936 by Rico Newton RT OR STAFF AT BEDSIDE
--- NOTE | 2022-11-16 08:49 | NUR ---
OH AT BEDSIDE
[2022-11-16] MEDS ORDERED: SEVOFLURANE 250 ML BTL INH ONE (09:01)
--- NOTE | 2022-11-16 09:04 | NUR ---
TRANSFERRED PATIENT TO OPERATING ROOM FOR TRACHEOSTOMY TUBE REPLACEMENT/INSERTION; REMOVED FROM VENTILATOR PLACED ON SUPPLEMENTAL OXYGEN AT 15 LPM VIA AMBU BAG TO HME/INLINE SUCTION CATHETER/ENDOTRACHEAL TUBE; AMBU BAG DEPRESSION EVERY SIX TO EIGHT SECONDS; TOLERATED TRANSFER WELL WITHOUT COMPLICATIONS NOTED; SATURATION 98% HR 77 BPM
[2022-11-16] MEDS ORDERED: fentaNYL citrate 0.05 MG/ML VIAL ONE (09:09)
[2022-11-16] MEDS ORDERED: ROCURONIUM 50 MG/5 ML VIAL IV ONE (09:43)
[2022-11-16] MEDS ORDERED: PROPOFOL 200 MG/20 ML VIAL IV ONE (09:43)
[2022-11-16] MEDS ORDERED: ONDANSETRON 4 MG/2 ML VIAL ONE (09:43)
[2022-11-16] MEDS ORDERED: METOCLOPRAMIDE 10 MG/2 ML INJ VIAL ONE (09:43)
[2022-11-16] MEDS ORDERED: DEXAMETHASONE 4 MG/ML VIAL ONE ×2 (09:43)
[2022-11-16] MEDS: PANTOPRAZOLE 40 MG INJ VIAL IVP SCH (11:00)
[2022-11-16] MEDS: LOSARTAN 50 MG TAB PO SCH (11:15)
[2022-11-16] MEDS: amLODIPine 5 MG TAB PO SCH (11:15)
[2022-11-16] MEDS: carvediloL 6.25 MG TAB GT SCH ×2 (11:15→20:07)
[2022-11-16] MEDS: DOCUSATE 100 MG/10 ML UDC PO SCH (11:15)
[2022-11-16] MEDS: CLONIDINE HYDROCHLORIDE 0.1 MG TAB GT SCH ×2 (11:15→17:00)
[2022-11-16] MEDS: ATORVASTATIN 20 MG TAB PO SCH (11:15)
[2022-11-16] MEDS: BROMOCRIPTINE 2.5 MG TAB GT SCH (11:15)
[2022-11-16] MEDS: levETIRAcetam 100 MG/ML ORASYR GT SCH ×2 (11:15→20:07)
--- NOTE | 2022-11-16 11:15 | NUR ---
RECEIVED BACK FROM OPERATING ROOM (OR); PLACED BACK ON VENTILATOR WITH PREVIOUS SETTINGS NOTED; GOOD CHEST RISE; ENDOTRACHEAL SUCTION FOR COPIOUS THIN PALE YELLOW WITH BLOOD TINGED SECRETIONS; OROPHARYNGEAL SUCTION FOR COPIOUS FROTHY TO THIN HAZY WITH BLOOD TINGE SECRETIONS AIRWAY PATENT; REMOVED OR TAPE PLACED ON ENDOTRACHEAL TUBE (ETT); PLACED ETT WITHIN AN ANCHOR FAST; REESTABLISHED AT PREVIOUS ETT PLACEMENT AT 24cm TEETH/GUM LINE; REORDERED CXR FOR ETT PLACEMENT; EQUAL CHEST RISE; GOOD VTexp EQUAL OR GREATER THAN 8ml/kg (550ml ARDS PROTOCOL); SATURATION 98% ON FIO2 OF 30% PEEP 0 cmH2O
--- NOTE | 2022-11-16 11:32 | NUR ---
RECEIVED PT FROM SURGERY, UNABLE TO SURGICALLY INSERT TRACHEOSTOMY. PT REINTUBATED 7.0/24 TEETH. TOLERATING VENT SETTINGS. NSR ON MONITOR. LINEN CHANGED AND PT REPOSITIONED FOR COMFORT.
--- NOTE | 2022-11-16 11:42 | NUR ---
RADIOLOGY AT BEDSIDE FOR FOLLOW UP CXR; NOTED AT 1115 ENDOTRACHEAL TUBE PLACEMENT AT 24cm TEETH/GUM LINE
--- NOTE | 2022-11-16 11:46 | NUR ---
DR MNEDOZA AT BEDSIDE SPEAKING TO PTS FAMILY REGARDING SX AND PLAN OF CARE
--- NOTE | 2022-11-16 11:50 | NUR ---
DR. ASHLEY MENDOZA AT BEDSIDE; REVIEWED CXR IMPRESSION TAKEN IN OPERATING ROOM "SUBCUTANEOUS EMPHYSEMA"; FOLLOW UP CXR FOR ETT PLACEMENT AT 23cm TEETH/GUM LINE PROJECTED AT 3.1 ABOVE GARRET; HHN FREQUENCY; ACCEPTABLE OXYGEN SATURATION LEVEL; VENTILATOR SETTINGS WITH NO PEEP "OKAY TO HAVE PEEP AT 0 cmH2O ; DIAGNOSTIC SATURATION READING 98% VORO; CHANGE HHN THERAPY TO DUONEB Q6 AND Q4 PRN SOB/WHEEZE; OXYGEN SATURATION GREATER THAN 90%
--- NOTE | 2022-11-16 13:09 | NUR ---
DR PEREZ AT BEDSIDE SPEAKING TO FAMILY REGARDING SURGERY AND PLAN OF CARE
[2022-11-16] MEDS: ALBUTEROL SULFATE/IPRATROPIU 3 ML SOL IH SCH ×2 (14:05→19:00)
--- NOTE | 2022-11-16 15:30 | NUR ---
SEDATED RESTING WELL NO DISTRESS NOTED GOOD CHEST RISE ENDOTRACHEAL SUCTION FOR SMALL SEMI THICK PALE YELLOW SECRETIONS AIRWAY PATENT
[2022-11-16] MEDS: ALBUTEROL SULFATE/IPRATROPIU 3 ML SOL IH PRN (15:36)
--- NOTE | 2022-11-16 16:00 | NUR ---
PT REMAINS INTUBATED TOLERATING VENT SETTINGS. NSR ON MONITOR. FC DRAINING TO GRAVITY , FEEDINGS RUNNING PER ORDER TOLERATING WELL. NAD. SAFETY MAINTAINED
--- NOTE | 2022-11-16 16:45 | NUR ---
SPOKE TO DRY KILN WORKERCOURT SPECIALIST PT TO BE TX TO [facility], [facility], OR [facility] FOR HIGHER LEVEL OF CARE. PENDING BED INFORMATION. STATES [facility] IS ON WILL CALL WHEN PT IS ACCEPTED.
--- NOTE | 2022-11-16 16:56 | NUR ---
SEDATED RESTING COMFORTABLY EQUAL CHEST RISE AIRWAY PATENT
--- NOTE | 2022-11-16 19:30 | NUR ---
ASSUMED CARE OF PT.INITIAL ASSESSMENT COMPLETED.ETT TO VENT.AC/PRVC MODE FIO2 24% TV550 RATE 16 NO PEEP.W/PERIPHERAL IV TO MONY G20 INFUSING PROPOFOL AT 40MCG/KG/MIN.DRY WT 89KG.AND LT HAND G20 INFUSING NS AT TKO.W/G TUBE IN PLACE, NO RESIDUALS NOTED.ON CONTINUOUS TF GLUCERNA 1.2 ORDERED.W/PARK CATHETER TO BSD DRAINING SMALL AMT OF YELLOW URINE.FLACC 0.W/ SOFT WRIST RESTRAINTS TO LT WRIST ALSO NOTED.NO INJURIES NOTED AT THIS TIME.WILL CONTINUE TO CLOSELY MONITOR PT.FALL PRECAUTION IN PLACE
--- NOTE | 2022-11-16 19:37 | NUR ---
PHONE CALL FROM [facility], SPOKE WITH BIJAN ( ), PER BIJAN, SHE WANTED TO KNOW IF PT TESTED POSITIVE FOR COLT AURIS, PHONE CALL MADE TO [facility] [place], SPOKE WITH TEODORO CASPER, SHE SAID THE "PT WAS ONLY THERE IN THEIR FACILITY FOR 7 HOURS, THAT CERTAIN TEST WAS NOT DONE".CALLED BIJAN OF [place] AND INFORMED OF [facility] REPORT, PER BIJAN, THIS IS PENDING ACCEPTANCE.
--- NOTE | 2022-11-16 21:00 | NUR ---
FAMILY AT BEDSIDE, UPDATED ON PTS PRESENT CONDITION.QUESTIONS ANSWERED
[2022-11-17] VITALS (25 sets, daily range): BP systolic 99–185; BP diastolic 50–78
--- NOTE | 2022-11-17 | NUR ---
ORAL CARE USING VAP KIT RENDERED.AFEBRILE.FLACC 0.STILL SEDATED ON PROPOFOL DRIP
[2022-11-17] MEDS: ALBUTEROL SULFATE/IPRATROPIU 3 ML SOL IH SCH ×4 (00:17→19:37)
[2022-11-17] MEDS: BLOOD GLUCOSE MONITORING 1 DEV DEV FS SCH ×5 (00:36→23:54)
[2022-11-17] MEDS: INSULIN LISPRO SLIDING SCALE 100 UNITS/ML VIAL SUBQ PRN ×2 (00:37→11:56)
[2022-11-17] MEDS: PROPOFOL 1000 MG/100 ML PREMIX 100 ML IV PRN ×2 (02:02→13:45)
--- NOTE | 2022-11-17 02:58 | NUR ---
PHONE CALL FROM BROCK OF [facility], QUESTIONS ANSWERED.UPDATE GIVEN, PER BROCK, [facility] WILL HAVE TO REVIEW PTS CHARD AND WILL GET BACK TO US IN AM.
--- NOTE | 2022-11-17 04:52 | NUR ---
BM NOTED; MODERATE AMT OF BROWNISH WATERY STOOL, MORNING CARE DONE, ORAL CARE RENDERED USING VAP KIT, ORAL SECRETIONS SUCTIONED.FLACC 0.REPOSITIONED
[2022-11-17 05:58] LABS: BASOPHILS % (AUTO) 0.5 % (0.0-2.0); EOSINOPHILS # (AUTO) 0.2 K/uL (0-0.4); EOSINOPHILS % (AUTO) 2.2 % (0.0-4.0); HEMATOCRIT 27.3 % (36-52); HEMOGLOBIN 9.2 g/dL (12.0-18.0); LYMPHOCYTES # (AUTO) 1.3 K/uL (2.0-11.5); LYMPHOCYTES % (AUTO) 13.5 % (20.5-51.1); MEAN CORPUSCULAR HEMOGLOBIN 31 pg (27-31); MEAN CORPUSCULAR HGB CONC 34 g/dL (33-37); MEAN CORPUSCULAR VOLUME 92.6 fL (80-94); MONOCYTES # (AUTO) 0.7 K/uL (0.8-1.0); NEUTROPHILS # (AUTO) 7.4 K/uL (1.8-7.7); NEUTROPHILS % (AUTO) 76.8 % (42.2-75.2); PLATELET COUNT (AUTO) 407 K/uL (140-450); RED BLOOD CELL COUNT(AUTO) 2.95 MIL/uL (4.20-6.10); RED CELL DISTRIBUTION WIDTH 14.6 % (11.6-13.7); WHITE BLOOD COUNT (AUTO) 9.7 K/uL (4.8-10.8)
[2022-11-17 06:33] LABS: ALBUMIN 2.2 g/dL (3.4-5.0); ANION GAP 12.5 (8-16); CARBON DIOXIDE 26.4 mmol/L (21-32); CREATININE 0.7 mg/dL (0.6-1.3); POTASSIUM 3.9 mmol/L (3.5-5.1); TOTAL BILIRUBIN 0.3 mg/dL (0.0-1.0)
--- NOTE | 2022-11-17 07:39 | NUR ---
Received pt lightly sedated. Able to follow simple command. ETT to vent settings AC PRVC TV 550 rate 16 FiO2@30%. Sinus rhythm on monitor. G-tube intact and patent infusing Glucerna 1.2@55ml/hr with FWF 150 Q6hr and tolerating well. Ferreira catheter intact and draining to gravity. Peripheral IV 20 gauge on left upper arm intact and infusing Propofol @20mg/kg/min. Left wrist soft restraint in place with no sign of injury. Safety precautions in place.
[2022-11-17] MEDS: ATORVASTATIN 20 MG TAB PO SCH (08:07)
[2022-11-17] MEDS: carvediloL 6.25 MG TAB GT SCH ×2 (08:07→21:14)
[2022-11-17] MEDS: amLODIPine 5 MG TAB PO SCH (08:07)
[2022-11-17] MEDS: LOSARTAN 50 MG TAB PO SCH (08:08)
[2022-11-17] MEDS: PANTOPRAZOLE 40 MG INJ VIAL IVP SCH (08:08)
--- NOTE | 2022-11-17 08:08 | NUR ---
PATIENT PLACED ON CPAP. TOLERATING WELL. GOOD CHEST RISE. WILL CONTINUE TO MONITOR.
[2022-11-17] MEDS: BROMOCRIPTINE 2.5 MG TAB GT SCH (08:09)
[2022-11-17] MEDS: levETIRAcetam 100 MG/ML ORASYR GT SCH ×2 (08:09→21:14)
[2022-11-17] MEDS: DOCUSATE 100 MG/10 ML UDC PO SCH (08:09)
[2022-11-17] MEDS: CLONIDINE HYDROCHLORIDE 0.1 MG TAB GT SCH ×2 (08:09→17:00)
--- NOTE | 2022-11-17 11:20 | NUR ---
PLACED PATIENT BACK NO FULL SUPPORT. PRVC 550 F16, FIO2 30% 0 PEEP. PATIENT SATING AT 100%. CLEAR BREATH SOUNDS TO AUSCULATION. WILL CONITINUE TO MONITOR.
--- NOTE | 2022-11-17 11:25 | NUR ---
RT placed pt back on vent settings. [id number] Dr. James at bedside examining patient.
--- NOTE | 2022-11-17 14:07 | NUR ---
Seen and examined by Dr. Robison. New order to resume plavix and aspirin.
--- NOTE | 2022-11-17 17:15 | NUR ---
Dr. Altman at bedside speaking with family.
--- NOTE | 2022-11-17 19:10 | NUR ---
Endorsed to assembler 1st shift nurse for continuity of care.
--- NOTE | 2022-11-17 20:30 | NUR ---
VISITED BY FAMILY( AND SON LYNETTE), UPDATED ON PTS PRESENT CONDITION.QUESTIONS ANSWERED.
--- NOTE | 2022-11-17 21:50 | NUR ---
ASSUMED CARE OF PT.INITIAL ASSESSMENT COMPLETED.ORALLY INTUBATED.AC/PRVC MODE FIO2 30% TV550 RATE 16 NO PEEP.W/PERIPHERAL IV TO MONY G20 INFUSING PROPOFOL AT 20MCG/KG/MIN.DRY WT 89KG.AND LT HAND G20 INFUSING NS AT TKO.W/G TUBE IN PLACE, NO RESIDUALS NOTED.ON CONTINUOUS TF GLUCERNA 1.2 ORDERED.W/PARK CATHETER TO BSD DRAINING SMALL AMT OF YELLOW URINE.FLACC 0.W/ SOFT WRIST RESTRAINTS TO LT WRIST ALSO NOTED.NO INJURIES NOTED AT THIS TIME.WILL CONTINUE TO CLOSELY MONITOR PT.FALL PRECAUTION IN PLACE Addendum: 11/17/22 at 2152 by Hien Bah RN TIME 1929,NOT 2149
[2022-11-18] VITALS (28 sets, daily range): BP systolic 138–183; BP diastolic 62–79
--- NOTE | 2022-11-18 | NUR ---
AFEBRILE.ORAL CARE USING VAP KIT.PT ON DAILY PROTONIX FOR GI PROPHYLAXIS AND ASA FOR DVT PROPHYLAXIS.REPOSITIONED.FLACC 0
[2022-11-18] MEDS: PROPOFOL 1000 MG/100 ML PREMIX 100 ML IV PRN (01:40)
[2022-11-18] MEDS: ALBUTEROL SULFATE/IPRATROPIU 3 ML SOL IH SCH ×4 (01:57→19:30)
--- NOTE | 2022-11-18 02:22 | NUR ---
PTS CONDITION REMAINS UNCHANGED.STILL SEDATED ON PROPOFOL DRIP AT 20MCG/KG/MIN.FIO2 ON VENT STILL 30%.NO RESP DISTRESS NOTED.SECRETIONS SUCTIONED NEEDED.FLACC 0
--- NOTE | 2022-11-18 04:00 | NUR ---
AFEBRILE.ORAL CARE DONE.REPOSITIONED.NO DISTRESS NOTED
--- NOTE | 2022-11-18 05:15 | NUR ---
MORNING CARE DONE.NO BM NOTED.REPOSITIONED.FLACC 0
[2022-11-18 05:48] LABS: BASOPHILS % (AUTO) 0.3 % (0.0-2.0); EOSINOPHILS # (AUTO) 0.4 K/uL (0-0.4); EOSINOPHILS % (AUTO) 3.8 % (0.0-4.0); HEMATOCRIT 24.9 % (36-52); HEMOGLOBIN 8.4 g/dL (12.0-18.0); LYMPHOCYTES # (AUTO) 1.3 K/uL (2.0-11.5); LYMPHOCYTES % (AUTO) 13.7 % (20.5-51.1); MEAN CORPUSCULAR HEMOGLOBIN 31 pg (27-31); MEAN CORPUSCULAR HGB CONC 34 g/dL (33-37); MEAN CORPUSCULAR VOLUME 92.1 fL (80-94); MONOCYTES # (AUTO) 0.6 K/uL (0.8-1.0); MONOCYTES % (AUTO) 6.6 % (1.7-9.3); NEUTROPHILS # (AUTO) 7.2 K/uL (1.8-7.7); NEUTROPHILS % (AUTO) 75.6 % (42.2-75.2); PLATELET COUNT (AUTO) 346 K/uL (140-450); RED BLOOD CELL COUNT(AUTO) 2.71 MIL/uL (4.20-6.10); RED CELL DISTRIBUTION WIDTH 14.3 % (11.6-13.7); WHITE BLOOD COUNT (AUTO) 9.5 K/uL (4.8-10.8)
[2022-11-18] MEDS: INSULIN LISPRO SLIDING SCALE 100 UNITS/ML VIAL SUBQ PRN ×3 (06:18→17:30)
[2022-11-18] MEDS: BLOOD GLUCOSE MONITORING 1 DEV DEV FS SCH ×3 (06:18→17:29)
[2022-11-18 06:19] LABS: ANION GAP 9.4 (8-16); CARBON DIOXIDE 28.3 mmol/L (21-32); CREATININE 0.6 mg/dL (0.6-1.3); POTASSIUM 3.7 mmol/L (3.5-5.1); TOTAL BILIRUBIN 0.3 mg/dL (0.0-1.0)
--- NOTE | 2022-11-18 07:20 | NUR ---
Pt on sedation vacation.
--- NOTE | 2022-11-18 07:20 | NUR ---
RECEIVED ON A mth senseAPE R860 VENTILATOR PLUGGED INTO RED OUTLET TOLERATING WELL WITHOUT ADVERSE REACTIONS NOTED TO AN ENDOTRACHEAL #7.0 SECURED AT 24cm TEETH/GUM LINE WITH AN ANCHOR FAST CUFF PRESSURE CHECKED NOTED AMBU BAG AT BEDSIDE SEDATION VACATION ASLEEP EASILY AWAKENS STABLE EQUAL CHEST RISE ENDOTRACHEAL SUCTION FOR LARGE THIN PALE YELLOW SECRETIONS AIRWAY PATENT
--- NOTE | 2022-11-18 07:20 | NUR ---
PLACED ON CPAP TRIAL NOTED TOLERATING WELL NO EVIDENCE OF RESPIRATORY DISTRESS NOTED EQUAL CHEST RISE GOOD AERATION THROUGHOUT BILATERAL LUNG LEONG AIRWAY PATENT TRISTAN/STAFF VETERINARIAN NOTIFIED
--- NOTE | 2022-11-18 07:40 | NUR ---
Received pt awake and able to follow simple commands. ETT to vent settings AC PRVC TV 550 rate 16 FiO2@30%. Sinus rhythm on monitor. G-tube intact and infusing Glucerna 1.2@55ml/hr with FWF 150 Q6hr. Ferreira catheter intact and draining to bedside drainage. Peripheral IV 20 gauge on left upper arm intact and patent. Left wrist soft restraint with no signs of injury. Safety precautions in place.
[2022-11-18] MEDS: carvediloL 6.25 MG TAB GT SCH ×2 (08:04→20:12)
[2022-11-18] MEDS: CLOPIDOGREL 75 MG TAB PO SCH (08:04)
[2022-11-18] MEDS: ASPIRIN 81 MG TAB.CHEW PO SCH (08:04)
[2022-11-18] MEDS: LOSARTAN 50 MG TAB PO SCH (08:04)
[2022-11-18] MEDS: amLODIPine 5 MG TAB PO SCH (08:04)
[2022-11-18] MEDS: ATORVASTATIN 20 MG TAB PO SCH (08:05)
--- NOTE | 2022-11-18 08:05 | NUR ---
CXR done at bedside.
[2022-11-18] MEDS: CLONIDINE HYDROCHLORIDE 0.1 MG TAB GT SCH ×2 (08:06→16:05)
[2022-11-18] MEDS: BROMOCRIPTINE 2.5 MG TAB GT SCH (08:06)
[2022-11-18] MEDS: PANTOPRAZOLE 40 MG INJ VIAL IVP SCH (08:06)
[2022-11-18] MEDS: DOCUSATE 100 MG/10 ML UDC PO SCH (08:06)
[2022-11-18] MEDS: levETIRAcetam 100 MG/ML ORASYR GT SCH ×2 (08:06→20:12)
--- NOTE | 2022-11-18 09:34 | NUR ---
STABLE GOOD CHEST RISE AIRWAY PATENT
--- NOTE | 2022-11-18 10:04 | NUR ---
PT NOTED WITH ELEVATEDE BP 197/[address] GONZALEZ. Addendum: 11/18/22 at 2324 by CHAD CISNEROS RN DISREGARD NOTE PREVIOUS NOTE FOR 1004 AM ON 11/18/2022.
--- NOTE | 2022-11-18 10:55 | NUR ---
TOLERATING CPAP TRIAL NO RESPIRATORY DISTRESS NOTED GOOD CHEST RISE AIRWAY PATENT
--- NOTE | 2022-11-18 11:52 | NUR ---
TOLERATING CPAP TRIAL NOTED EQUAL CHEST RISE ENDOTRACHEAL SUCTION FOR MODERATE SEMI THICK PALE YELLOW SECRETIONS AIRWAY PATENT GERONIMO MENDOZA ROUNDING AWARE OF CURRENT VENTILATOR SETTINGS NOTED
--- NOTE | 2022-11-18 11:58 | NUR ---
Dr. James at bedside examining patient. RT at bedside as well. New order for ABG after 30 minutes. If pt does well, plan for extubation.
--- NOTE | 2022-11-18 12:05 | NUR ---
Dr. Robison at bedside with Dr. James and agreed to extubate patient today. ABG 30 minutes after.
[2022-11-18] MEDS: METOCLOPRAMIDE 10 MG/2 ML INJ VIAL IVP SCH ×2 (12:09→17:26)
--- NOTE | 2022-11-18 12:28 | NUR ---
RT at bedside. Pt extubated and placed on high flow nasal cannula 40L, FiO2@28%. Breathing even and unlabored. O2 sat 96%.
--- NOTE | 2022-11-18 12:40 | NUR ---
Called elaine Carranza and gave update on pt status. All questions answered.
[2022-11-18] MEDS: hydrALAZINE 20 MG/ML VIAL IVP PRN ×2 (12:46→19:59)
--- NOTE | 2022-11-18 13:04 | NUR ---
RT at bedside for ABG.
--- NOTE | 2022-11-18 14:12 | NUR ---
RESTING COMFORTABLY TOLERATING HIGH FLOW NASAL CANNULA NOTED GOOD CHEST RISE STRONG PRODUCTIVE COUGH DURING HHN THERAPY OROPHARYNGEAL SUCTION FOR MODERATE THIN PALE YELLOW SECRETIONS AIRWAY PATENT
--- NOTE | 2022-11-18 14:28 | NUR ---
VIA ICU PHONE ABG RESULTS TEXTED TO DR. ASHLEY MENDOZA; POST EXTUBATION AFTER 30 MINS; HIGH FLOW NASAL CANNULA FIO2 28% FLO2 40 LPM T 33.3; SATURATION 96%; SpRR 26 BPM
--- NOTE | 2022-11-18 15:15 | NUR ---
11/18/22 RD FOLLOW UP COMPLETED PLEASE REFER TO NUTRITION ASSESSMENT UNDER CARE ACTIVITY FOR ESTIMATED NUTRITIONAL NEEDS. 1. CONTINUE GLUCERNA 1.2 WITH A GOAL RATE OF 55ML/HR -FWF: 150ML Q6H OR PER MD -WITH PROPOFOL @ 10.5 ML/HR, PT WILL RECEIVE 1861 KCAL AND 79G PROTEIN, MEETING 89% OF ESTIMATED KCAL AND 100% OF ESTIMATED PROTEIN NEEDS; ADEQUATE 2. IF PT EXTUBATED, RECOMMEND SWALLOW EVAL BEFORE ADVANCING DIET 3. RD TO FOLLOW-UP 2-3 DAYS, HIGH RISK REVIEWED BY EMMA MENDOZA RD
--- NOTE | 2022-11-18 15:40 | NUR ---
development manager Melanie at bedside with pt and on the phone with pt's son.
[2022-11-18] MEDS: HYDROcodone/APAP 5/325 MG 1 TAB TAB PO PRN ×2 (16:12→20:50)
--- NOTE | 2022-11-18 19:09 | NUR ---
Endorsed to shift nurse manager nurse Waldemar for continuity of care.
--- NOTE | 2022-11-18 19:10 | NUR ---
RECEIVED BEDSIDE REPORT FROM TRISTAN VALERIO. VITALS: TEMP 98.8 F, HR 74, RR 24, SPO2 97%, BP 178/77 FLACC 0. PATIENT AWAKE IN BED, NONVERBAL. ON HIGH FLOW NASAL CANNULA 35L FIO2 28% BREATHING EVEN AND UNLABORED. LEFT 20G IV SALINE LOCKED. G-TUBE IN PLACE, FEEDING GLUCERNA 1.2 AT 55ML/HR. PARK CATHETER DRAINING YELLOW URINE. PT ON SOFT WRIST RESTRAINTS.
--- NOTE | 2022-11-18 20:40 | NUR ---
PT FAMILY AT BEDSIDE.
--- NOTE | 2022-11-18 22:04 | NUR ---
PT NOTED WITH ELEVATED BP OF 197/ 97, TWO HOURS AFTER ADMINISTRATION OF PRN HYDRALAZINE. PHONE CALL PLACED TO [facility] TO CONTACT ON-CALL DOCTOR.
--- NOTE | 2022-11-18 22:07 | NUR ---
RECEIVED NEW MEDICATION ORDERS FROM DOCTOR GONZALEZ. LABETALOL 20MG IVP Q4 PRN FOR SBP> 180. HYDRALAZINE 20MG IVP Q4 PRN FOR SBP >160.
[2022-11-18] MEDS ORDERED: LABETALOL 20 MG/4 ML VIAL IVP PRN (22:10)
[2022-11-18] MEDS ORDERED: LABETALOL 20 MG/4 ML VIAL IVP ONE (23:39)
[2022-11-19] VITALS (12 sets, daily range): BP systolic 121–187; BP diastolic 58–86
[2022-11-19] MEDS: METOCLOPRAMIDE 10 MG/2 ML INJ VIAL IVP SCH ×4 (00:17→18:29)
[2022-11-19] MEDS: hydrALAZINE 20 MG/ML VIAL IVP PRN ×2 (00:19→04:57)
[2022-11-19] MEDS: BLOOD GLUCOSE MONITORING 1 DEV DEV FS SCH ×4 (00:56→18:31)
[2022-11-19] MEDS: INSULIN LISPRO SLIDING SCALE 100 UNITS/ML VIAL SUBQ PRN ×4 (01:01→18:31)
[2022-11-19 05:45] LABS: BASOPHILS % (AUTO) 0.6 % (0.0-2.0); EOSINOPHILS # (AUTO) 0.7 K/uL (0-0.4); EOSINOPHILS % (AUTO) 8.8 % (0.0-4.0); HEMATOCRIT 30.4 % (36-52); HEMOGLOBIN 10.3 g/dL (12.0-18.0); LYMPHOCYTES # (AUTO) 1.4 K/uL (2.0-11.5); LYMPHOCYTES % (AUTO) 17.5 % (20.5-51.1); MEAN CORPUSCULAR HEMOGLOBIN 31 pg (27-31); MEAN CORPUSCULAR HGB CONC 34 g/dL (33-37); MEAN CORPUSCULAR VOLUME 91.2 fL (80-94); MONOCYTES # (AUTO) 0.5 K/uL (0.8-1.0); MONOCYTES % (AUTO) 6.8 % (1.7-9.3); NEUTROPHILS # (AUTO) 5.3 K/uL (1.8-7.7); NEUTROPHILS % (AUTO) 66.3 % (42.2-75.2); PLATELET COUNT (AUTO) 427 K/uL (140-450); RED BLOOD CELL COUNT(AUTO) 3.33 MIL/uL (4.20-6.10); RED CELL DISTRIBUTION WIDTH 14.5 % (11.6-13.7)
[2022-11-19 06:16] LABS: ALBUMIN 2.3 g/dL (3.4-5.0); ANION GAP 14.6 (8-16); CARBON DIOXIDE 24.9 mmol/L (21-32); CREATININE 0.6 mg/dL (0.6-1.3); POTASSIUM 3.5 mmol/L (3.5-5.1); TOTAL BILIRUBIN 0.3 mg/dL (0.0-1.0)
[2022-11-19] MEDS: ALBUTEROL SULFATE/IPRATROPIU 3 ML SOL IH SCH ×3 (06:56→19:50)
--- NOTE | 2022-11-19 07:20 | NUR ---
BEDSIDE REPORT GIVEN TO MACEY RN FOR CONTINUITY OF CARE.
--- NOTE | 2022-11-19 07:30 | NUR ---
RECEIVED REPORT FROM TRAFFIC MANAGER. PT IN BED WITH HOB ELEVATED. OPENS EYES, TRACKS, ABLE TO FOLLOW SIMPLE COMMANDS, APHASIC. NO S/S OF PAIN NO RESPIRATORY DISTRESS ON HIFLOW O2 25L 28% FIO2. GT RUNNING GLUCERNA ORDERED. PARK CATHETER DRAINING CLEAR YELLOW URINE. PERIPHERAL IV SALINE LOCKED.
[2022-11-19] MEDS: CLONIDINE HYDROCHLORIDE 0.1 MG TAB GT SCH ×3 (08:21→20:56)
[2022-11-19] MEDS: levETIRAcetam 100 MG/ML ORASYR GT SCH ×2 (08:22→20:57)
[2022-11-19] MEDS: PANTOPRAZOLE 40 MG INJ VIAL IVP SCH (08:22)
[2022-11-19] MEDS: carvediloL 6.25 MG TAB GT SCH ×2 (08:22→20:57)
[2022-11-19] MEDS: ASPIRIN 81 MG TAB.CHEW PO SCH (08:22)
[2022-11-19] MEDS: BROMOCRIPTINE 2.5 MG TAB GT SCH (08:22)
[2022-11-19] MEDS: DOCUSATE 100 MG/10 ML UDC PO SCH (08:22)
[2022-11-19] MEDS: LOSARTAN 50 MG TAB PO SCH (08:23)
[2022-11-19] MEDS: CLOPIDOGREL 75 MG TAB PO SCH (08:23)
[2022-11-19] MEDS: amLODIPine 5 MG TAB PO SCH (08:23)
[2022-11-19] MEDS: ATORVASTATIN 20 MG TAB PO SCH (08:23)
--- NOTE | 2022-11-19 09:00 | NUR ---
due meds given. tolerated well. oral care done. turned and repositioned
--- NOTE | 2022-11-19 15:04 | NUR ---
REPORT GIVEN TO SOM VALERIO. TRANSFERRED PT TO TELE 124B
--- NOTE | 2022-11-19 19:30 | NUR ---
HANDOFF WITH PRINTMAKER RNADRIAN.
--- NOTE | 2022-11-19 20:00 | NUR ---
NURSE REPORT REPORT OBTAINED FROM [facility] NURSE KEARNS AT 1930 AND THIS NURSE ASSUMED CARE OF PATIENT. VSS. AFEB. NO C/O PAIN OR DISCOMFORT.
[2022-11-19] MEDS: HYDROcodone/APAP 5/325 MG 1 TAB TAB PO PRN (21:44)
--- NOTE | 2022-11-20 00:10 | NUR ---
NURSE NOTES VSS. AFEB. NO C/O PAIN OR DISCOMFORT. TELE MONITOR SR 66. RECEIVED BREATHING TREATMENT
[2022-11-20] MEDS: METOCLOPRAMIDE 10 MG/2 ML INJ VIAL IVP SCH ×4 (00:22→18:39)
[2022-11-20] MEDS: BLOOD GLUCOSE MONITORING 1 DEV DEV FS SCH ×4 (00:28→18:39)
[2022-11-20 00:30] VITALS: BP 132/72
[2022-11-20] MEDS: INSULIN LISPRO SLIDING SCALE 100 UNITS/ML VIAL SUBQ PRN (00:35)
[2022-11-20] MEDS: ALBUTEROL SULFATE/IPRATROPIU 3 ML SOL IH SCH ×4 (00:39→19:00)
[2022-11-20 04:00] VITALS: BP 150/96
--- NOTE | 2022-11-20 04:00 | NUR ---
NURSE NOTES VSS. AFEB. NO C/O PAIN OR DISCOMFORT.TELE MONITOR WITH SR 72.
[2022-11-20] MEDS: CLONIDINE HYDROCHLORIDE 0.1 MG TAB GT SCH ×3 (05:00→21:31)
[2022-11-20 06:00] LABS: BASOPHILS % (AUTO) 0.5 % (0.0-2.0); EOSINOPHILS # (AUTO) 0.5 K/uL (0-0.4); EOSINOPHILS % (AUTO) 6.7 % (0.0-4.0); HEMATOCRIT 29.3 % (36-52); HEMOGLOBIN 10.1 g/dL (12.0-18.0); LYMPHOCYTES # (AUTO) 1.3 K/uL (2.0-11.5); LYMPHOCYTES % (AUTO) 18.2 % (20.5-51.1); MEAN CORPUSCULAR HEMOGLOBIN 31 pg (27-31); MEAN CORPUSCULAR HGB CONC 34 g/dL (33-37); MEAN CORPUSCULAR VOLUME 90.5 fL (80-94); MONOCYTES # (AUTO) 0.5 K/uL (0.8-1.0); MONOCYTES % (AUTO) 7.7 % (1.7-9.3); NEUTROPHILS # (AUTO) 4.7 K/uL (1.8-7.7); NEUTROPHILS % (AUTO) 66.9 % (42.2-75.2); PLATELET COUNT (AUTO) 411 K/uL (140-450); RED BLOOD CELL COUNT(AUTO) 3.24 MIL/uL (4.20-6.10); RED CELL DISTRIBUTION WIDTH 14.4 % (11.6-13.7)
[2022-11-20 06:21] LABS: ALBUMIN 2.4 g/dL (3.4-5.0); ANION GAP 12.7 (8-16); CARBON DIOXIDE 26.1 mmol/L (21-32); CREATININE 0.7 mg/dL (0.6-1.3); POTASSIUM 3.8 mmol/L (3.5-5.1); TOTAL BILIRUBIN 0.3 mg/dL (0.0-1.0)
--- NOTE | 2022-11-20 07:45 | NUR ---
RECEIVED PATIENT FROM PM NURSE. EXCHANGED INFORMATION ON PATIENT. CONTINUATION OF CARE RESUMED.
--- NOTE | 2022-11-20 07:45 | NUR ---
NURSE REPORT REPORT GIVEN TO DAYSHIFT NURSE ZENA TO ASSUME CARE OF PATIENT. ALL QUESTIONS ANSWERED. ADRIAN BECKETT RN
[2022-11-20 08:00] VITALS: BP 164/75
[2022-11-20] MEDS: BROMOCRIPTINE 2.5 MG TAB GT SCH (09:00)
[2022-11-20] MEDS: LOSARTAN 50 MG TAB PO SCH (09:29)
[2022-11-20] MEDS: DOCUSATE 100 MG/10 ML UDC PO SCH (09:30)
[2022-11-20] MEDS: carvediloL 6.25 MG TAB GT SCH ×2 (09:30→21:31)
[2022-11-20] MEDS: ASPIRIN 81 MG TAB.CHEW PO SCH (09:30)
[2022-11-20] MEDS: levETIRAcetam 100 MG/ML ORASYR GT SCH ×2 (09:30→21:31)
[2022-11-20] MEDS: ATORVASTATIN 20 MG TAB PO SCH (09:31)
[2022-11-20] MEDS: amLODIPine 5 MG TAB PO SCH (09:31)
[2022-11-20] MEDS: CLOPIDOGREL 75 MG TAB PO SCH (09:31)
[2022-11-20] MEDS: PANTOPRAZOLE 40 MG INJ VIAL IVP SCH (09:31)
--- NOTE | 2022-11-20 10:30 | NUR ---
PATIENT LINEN AND GOWN CHANGED. OSTOMY WOUND ASSESSED. COVERED WITH NON ADHESIVE GAUZE. LUMBAR DRESSING CHANGED. PATIENT REPOSITIONED.
--- NOTE | 2022-11-20 11:34 | NUR ---
11/20/22 RD FOLLOW UP COMPLETED PLEASE REFER TO NUTRITION ASSESSMENT UNDER CARE ACTIVITY FOR ESTIMATED NUTRITIONAL NEEDS. 1. RECOMMEND INCREASING GLUCERNA 1.2 TO 70ML/HR -FWF: 200ML Q6H OR PER MD -WILL PROVIDE 2016KCAL, 101G PROTEIN AND 2152ML FREE WATER, MEETING ~100% ESTIMATED NUTRITIONAL NEEDS 2. MONITOR GI SYMPTOMS -RECOMMEND BANATROL FOR DIARRHEA 3. RD TO FOLLOW-UP 2-3 DAYS, HIGH RISK EMMA MENDOZA RD
--- NOTE | 2022-11-20 11:40 | NUR ---
FEEDING PUMP SETTINGS CHANGED PER ORDER OF ENTRY TABLE OPERATOR.
[2022-11-20 12:00] VITALS: BP 160/62
--- NOTE | 2022-11-20 13:00 | NUR ---
PATIENT ATTEMPTS TO PULL AT GTUBE. ORDERED SOFT RESTRAINTS.
[2022-11-20 16:00] VITALS: BP 160/67
[2022-11-20] MEDS: MORPHINE SULFATE 2 MG/ML SYR IVP PRN (18:56)
--- NOTE | 2022-11-20 19:20 | NUR ---
P.T. NOTES P.T. EVAL COMPLETED; REFER TO EVAL FOR DETAILS.
--- NOTE | 2022-11-20 19:30 | NUR ---
PATIENT ENDORSED TO PM NURSE FOR CONTINUATION OF CARE
--- NOTE | 2022-11-20 19:31 | NUR ---
ENDORSED WAS RECEIVED BY ZENA RN, PATIENT IN BED WITH AT BED SIDE. NURSING ENDORSED HE HAS ORDERS FOR BILATERAL WRIST RESTRAINTS. PATIENT WAS ABLE FOLLOW SIMPLE INSTRUCTION. NURSING IS ABLE TO GET TWO FINGERS UNDER RESTRAINTS. NO NOTED DISCOLORATION OR COMPLAINTS OF NUMBNESS. PATIENT COMMUNICATED IN BELARUSIAN AND WILL RESPOND BY SQUEEZING NURSE HAND FOR YES AND NO QUESTIONS. PATIENT SHOWS NO S/S OF PAIN/DISCOMFORT AT THIS TIME. SATURATION NOTED 95% ON ROOM AIR. SIDE RAILS UP X 3 AND PADDED FOR SEIZURE ACTIVITIES. NO REPORTED NOR OBSERVED SEIZURES AT THIS TIME. CALL LIGHT WITHIN REACH. NURSING WILL FREQUENT THIS ROOM FOR ANTICIPATED NEEDS. [email or web address]
[2022-11-20 20:00] VITALS: BP 155/87
--- NOTE | 2022-11-20 20:00 | NUR ---
Patient's Plan of Care was discussed and reviewed with SARITA URBAN:
--- NOTE | 2022-11-20 23:16 | NUR ---
PATIENT OBSERVED IN BED ASLEEP. NO S/S OF PAIN/DISCOMFORT. NO S/S OF RESPIRATORY DISTRESS. NURSING WILL FREQUENT THIS ROOM FOR ANTICIPATED NEEDS. [email or web address]
[2022-11-21] VITALS: BP 141/75
--- NOTE | 2022-11-21 01:20 | NUR ---
PATIENT NOTED IN BE ASLEEP. SIDE RAILS UP AND CALL LIGHT WITHIN REACH FOR ALL ASSISTANCE. NO NOTED S/S OF PAIN/DISCOMFORT. NO NOTED S/S OF RESPIRATORY DISTRESS. NURSING WILL FREQUENT THIS ROOM FOR ANTICIPATED ASSISTANCE. [email or web address]
[2022-11-21] MEDS: ALBUTEROL SULFATE/IPRATROPIU 3 ML SOL IH SCH ×3 (01:47→20:12)
[2022-11-21 04:00] VITALS: BP 141/75
[2022-11-21] MEDS: METOCLOPRAMIDE 10 MG/2 ML INJ VIAL IVP SCH ×4 (05:22→17:52)
[2022-11-21] MEDS: CLONIDINE HYDROCHLORIDE 0.1 MG TAB GT SCH ×3 (05:26→21:00)
[2022-11-21] MEDS: BLOOD GLUCOSE MONITORING 1 DEV DEV FS SCH ×4 (05:32→16:30)
[2022-11-21 06:21] LABS: BASOPHILS % (AUTO) 0.3 % (0.0-2.0); EOSINOPHILS # (AUTO) 0.5 K/uL (0-0.4); EOSINOPHILS % (AUTO) 5.9 % (0.0-4.0); HEMATOCRIT 33.5 % (36-52); HEMOGLOBIN 11.3 g/dL (12.0-18.0); LYMPHOCYTES # (AUTO) 1.3 K/uL (2.0-11.5); LYMPHOCYTES % (AUTO) 16.3 % (20.5-51.1); MEAN CORPUSCULAR HEMOGLOBIN 30 pg (27-31); MEAN CORPUSCULAR HGB CONC 34 g/dL (33-37); MEAN CORPUSCULAR VOLUME 89.4 fL (80-94); MONOCYTES # (AUTO) 0.6 K/uL (0.8-1.0); MONOCYTES % (AUTO) 7.9 % (1.7-9.3); NEUTROPHILS # (AUTO) 5.4 K/uL (1.8-7.7); NEUTROPHILS % (AUTO) 69.6 % (42.2-75.2); PLATELET COUNT (AUTO) 458 K/uL (140-450); RED BLOOD CELL COUNT(AUTO) 3.74 MIL/uL (4.20-6.10); RED CELL DISTRIBUTION WIDTH 14.2 % (11.6-13.7); WHITE BLOOD COUNT (AUTO) 7.8 K/uL (4.8-10.8)
[2022-11-21 06:43] LABS: ALBUMIN 2.7 g/dL (3.4-5.0); ANION GAP 12.4 (8-16); CARBON DIOXIDE 25.3 mmol/L (21-32); CREATININE 0.6 mg/dL (0.6-1.3); POTASSIUM 3.7 mmol/L (3.5-5.1); TOTAL BILIRUBIN 0.4 mg/dL (0.0-1.0)
--- NOTE | 2022-11-21 07:28 | NUR ---
ENDORSED PATIENT TO ARCO PAPER TWISTER TENDER TO BE GIVEN TO VAZQUEZ (REGISTRY) FOR CONTINUITY OF CARE. PATIENT WAS STABLE DURING SHIFT CHANGE. [email or web address]
--- NOTE | 2022-11-21 07:28 | NUR ---
RECEIVED REPORT FROM NIGHTSHIFT NURSE RACHELL FOR CONTINUITY OF CARE, PT IN STABLE CONDITION. NO SIGNS OF DISTRESS OR COMPLAINTS OF PAIN NOTED AT THIS TIME.
[2022-11-21 08:00] VITALS: BP 139/73
[2022-11-21] MEDS: DOCUSATE 100 MG/10 ML UDC PO SCH (09:00)
--- NOTE | 2022-11-21 09:25 | NUR ---
ENDORSED PT TO DAYSDCFT NURSE NOEL FOR CONTINUITY OF CARE.
[2022-11-21] MEDS: PANTOPRAZOLE 40 MG INJ VIAL IVP SCH (09:51)
[2022-11-21] MEDS: CLOPIDOGREL 75 MG TAB PO SCH (09:51)
[2022-11-21] MEDS: ASPIRIN 81 MG TAB.CHEW PO SCH (09:51)
[2022-11-21] MEDS: LOSARTAN 50 MG TAB PO SCH (09:52)
[2022-11-21] MEDS: levETIRAcetam 100 MG/ML ORASYR GT SCH ×2 (09:52→21:47)
[2022-11-21] MEDS: amLODIPine 5 MG TAB PO SCH (09:52)
[2022-11-21] MEDS: ATORVASTATIN 20 MG TAB PO SCH (09:52)
[2022-11-21] MEDS: BROMOCRIPTINE 2.5 MG TAB GT SCH (09:53)
[2022-11-21] MEDS: carvediloL 6.25 MG TAB GT SCH ×2 (09:53→21:47)
[2022-11-21 12:00] VITALS: BP 154/78
[2022-11-21] MEDS: INSULIN LISPRO SLIDING SCALE 100 UNITS/ML VIAL SUBQ PRN ×3 (12:08→17:54)
[2022-11-21 16:00] VITALS: BP 149/96
--- NOTE | 2022-11-21 19:30 | NUR ---
RECEIVED REPORT FROM DAY SHIFT NURSE NOEL FOR CONTINUITY OF CARE. PATIENT IS NON-VERBAL. PATIENT IS ON ROOM AIR; BREATHING IS NORMAL WITH SYMMETRICAL RISE AND FALL OF CHEST. IV IS A 20G L UPPER ARM, NO FLUIDS RUNNING AT THIS TIME. PATIENT IS LYING IN BED IN SEMI-FOWLERS POSITION. FAMILY MEMBER IS AT BEDSIDE. BED IS IN LOWEST POSITION, WHEELS LOCKED, CALL LIGHT IN PLACE. WILL CONTINUE TO OBSERVE PATIENT.
[2022-11-21 20:00] VITALS: BP 158/82
--- NOTE | 2022-11-21 22:00 | NUR ---
CLONIDINE NOT ADMINISTERED. MEDICATION IS Q8HR, AND LAST DOSE WAS GIVEN AT 1753. 2100 DOSE WAS TOO CLOSE TO IN TIME TO PREVIOUS DOSE. PATIENT'S COREG WAS ADMINISTERED; PATIENT'S VITALS WILL CONTINUE TO BE MONITORED.
[2022-11-22] VITALS: BP 156/78
[2022-11-22] MEDS: METOCLOPRAMIDE 10 MG/2 ML INJ VIAL IVP SCH ×5 (00:12→23:57)
[2022-11-22] MEDS: BLOOD GLUCOSE MONITORING 1 DEV DEV FS SCH ×5 (00:24→23:51)
[2022-11-22] MEDS: INSULIN LISPRO SLIDING SCALE 100 UNITS/ML VIAL SUBQ PRN ×4 (00:28→18:38)
[2022-11-22] MEDS: ALBUTEROL SULFATE/IPRATROPIU 3 ML SOL IH SCH ×4 (01:00→20:46)
--- NOTE | 2022-11-22 01:00 | NUR ---
PATIENT'S FEEDING IS RUNNING. 2100 MEDICATION ADMINISTERED WITHOUT ANY ISSUES. PATIENT'S BS WAS 173; 2 UNITS OF HUMALOG GIVEN FOR COVERAGE. PATIENT LOOKS AT ME WHEN I CALL HIS NAME, BUT DOES NOT ANSWER ANY QUESTIONS. 0000 IVP MEDICATION ADMINISTERED WITHOUT ANY ISSUES; IV IS PATENT. WILL CONTINUE TO OBSERVE PATIENT.
[2022-11-22 04:00] VITALS: BP 165/83
[2022-11-22] MEDS: CLONIDINE HYDROCHLORIDE 0.1 MG TAB GT SCH ×3 (05:25→20:16)
--- NOTE | 2022-11-22 06:00 | NUR ---
PATIENT SLEPT THROUGHOUT THE NIGHT. PATIENT HAD 1000 ML OF URINE EMPTIED FROM CATHETER WITH NO BM. PATIENT IS SLEEPING, LYING SUPINE. BREATHING IS NORMAL WITH SYMMETRICAL RISE AND FALL OF CHEST. FEEDING PUMP IS STILL RUNNING. WILL CONTINUE TO OBSERVE PATIENT.
[2022-11-22 06:32] LABS: BASOPHILS % (AUTO) 0.6 % (0.0-2.0); EOSINOPHILS # (AUTO) 0.5 K/uL (0-0.4); EOSINOPHILS % (AUTO) 6.7 % (0.0-4.0); HEMATOCRIT 32.4 % (36-52); HEMOGLOBIN 11.2 g/dL (12.0-18.0); LYMPHOCYTES # (AUTO) 1.3 K/uL (2.0-11.5); MEAN CORPUSCULAR HEMOGLOBIN 31 pg (27-31); MEAN CORPUSCULAR HGB CONC 35 g/dL (33-37); MEAN CORPUSCULAR VOLUME 89.2 fL (80-94); MONOCYTES # (AUTO) 0.5 K/uL (0.8-1.0); MONOCYTES % (AUTO) 6.8 % (1.7-9.3); NEUTROPHILS # (AUTO) 5.6 K/uL (1.8-7.7); NEUTROPHILS % (AUTO) 69.9 % (42.2-75.2); PLATELET COUNT (AUTO) 430 K/uL (140-450); RED BLOOD CELL COUNT(AUTO) 3.63 MIL/uL (4.20-6.10); RED CELL DISTRIBUTION WIDTH 14.1 % (11.6-13.7); WHITE BLOOD COUNT (AUTO) 8.1 K/uL (4.8-10.8)
[2022-11-22 06:48] LABS: ALBUMIN 2.7 g/dL (3.4-5.0); ANION GAP 13.3 (8-16); CARBON DIOXIDE 24.6 mmol/L (21-32); CREATININE 0.6 mg/dL (0.6-1.3); POTASSIUM 3.9 mmol/L (3.5-5.1); TOTAL BILIRUBIN 0.4 mg/dL (0.0-1.0)
--- NOTE | 2022-11-22 07:33 | NUR ---
ENDORSED TO DAY SHIFT NURSE WENDY FOR CONTINUITY OF CARE. PATIENT IS STABLE.
--- NOTE | 2022-11-22 07:33 | NUR ---
GOT REPORT FROM THE NIGHT NURSE, PT AWAKE , NO SOB LOOKS COMFORTABLE.[email or web address]
[2022-11-22 08:00] VITALS: BP 131/70
[2022-11-22] MEDS: LOSARTAN 50 MG TAB PO SCH (08:27)
[2022-11-22] MEDS: levETIRAcetam 100 MG/ML ORASYR GT SCH ×2 (08:27→20:16)
[2022-11-22] MEDS: PANTOPRAZOLE 40 MG INJ VIAL IVP SCH (08:27)
[2022-11-22] MEDS: amLODIPine 5 MG TAB PO SCH (08:27)
[2022-11-22] MEDS: ASPIRIN 81 MG TAB.CHEW PO SCH (08:27)
[2022-11-22] MEDS: CLOPIDOGREL 75 MG TAB PO SCH (08:27)
[2022-11-22] MEDS: carvediloL 6.25 MG TAB GT SCH ×2 (08:27→20:16)
[2022-11-22] MEDS: ATORVASTATIN 20 MG TAB PO SCH (08:27)
[2022-11-22] MEDS: DOCUSATE 100 MG/10 ML UDC PO SCH (08:27)
[2022-11-22] MEDS: BROMOCRIPTINE 2.5 MG TAB GT SCH (08:28)
--- NOTE | 2022-11-22 10:20 | NUR ---
rachana bath given, dressing on the G-tube insertion site, and dressing enforced by iv site on the left upper arm.[email or web address]
[2022-11-22 12:00] VITALS: BP 127/82
--- NOTE | 2022-11-22 12:40 | NUR ---
in new tubing the new feeding bottle of Glucerna started.[email or web address]
--- NOTE | 2022-11-22 15:52 | NUR ---
increased the feeding to 65/hour , family at bed side, pt alert no complaint.[email or web address]
[2022-11-22 16:00] VITALS: BP 142/75
--- NOTE | 2022-11-22 16:06 | NUR ---
11/22/22 RD FOLLOW UP COMPLETED.PLEASE REFER TO NUTRITION ASSESSMENT UNDER CARE ACTIVITY FOR ESTIMATED NUTRITIONAL NEEDS. 1.RECOMMEND INCREASING GLUCERNA 1.2 TO 65 ML/HR -FWF: 150 ML Q6H OR PER MD -WILL PROVIDE 1872 KCAL, 94G PROTEIN AND 1856 ML FREE WATER, MEETING ~89% OF KCAL AND 100% ESTIMATED PROTEIN NEEDS; ADEQUATE 2. MONITOR GASTRIC RESIDUAL 3. RD TO FOLLOW-UP 2-3 DAYS, HIGH RISK YURY CHILD RD
--- NOTE | 2022-11-22 19:15 | NUR ---
11/12 23 0800 PT NOT WITHIN NORMAL DEVELOPMENT AGE LIMIT.
--- NOTE | 2022-11-22 19:30 | NUR ---
RECEIVED REPORT FROM DAY SHIFT NURSE WENDY FOR CONTINUITY OF CARE. PATIENT IS NON-VERBAL. PATIENT IS ON ROOM AIR; BREATHING IS NORMAL WITH SYMMETRICAL RISE AND FALL OF CHEST. IV IS A 20G L UPPER ARM, NO FLUIDS RUNNING AT THIS TIME. FEEDING WAS INCREASED FROM 55ML/HR TO 65ML/HR BY DAY SHIFT NURSE. PATIENT IS LYING IN BED IN SEMI-FOWLERS POSITION. FAMILY MEMBER IS AT BEDSIDE. BED IS IN LOWEST POSITION, WHEELS LOCKED, CALL LIGHT IN PLACE. WILL CONTINUE TO OBSERVE PATIENT.
[2022-11-22 20:00] VITALS: BP 152/72
[2022-11-23] VITALS: BP 139/72
[2022-11-23] MEDS: ALBUTEROL SULFATE/IPRATROPIU 3 ML SOL IH SCH ×4 (01:00→19:41)
[2022-11-23 04:00] VITALS: BP 142/72
[2022-11-23] MEDS: CLONIDINE HYDROCHLORIDE 0.1 MG TAB GT SCH ×3 (05:33→21:00)
[2022-11-23] MEDS: METOCLOPRAMIDE 10 MG/2 ML INJ VIAL IVP SCH ×3 (05:34→17:39)
[2022-11-23 05:46] LABS: BASOPHILS % (AUTO) 0.5 % (0.0-2.0); EOSINOPHILS # (AUTO) 0.5 K/uL (0-0.4); EOSINOPHILS % (AUTO) 6.8 % (0.0-4.0); HEMATOCRIT 30.2 % (36-52); HEMOGLOBIN 10.4 g/dL (12.0-18.0); LYMPHOCYTES # (AUTO) 1.3 K/uL (2.0-11.5); LYMPHOCYTES % (AUTO) 16.6 % (20.5-51.1); MEAN CORPUSCULAR HEMOGLOBIN 30 pg (27-31); MEAN CORPUSCULAR HGB CONC 35 g/dL (33-37); MONOCYTES # (AUTO) 0.6 K/uL (0.8-1.0); NEUTROPHILS # (AUTO) 5.5 K/uL (1.8-7.7); NEUTROPHILS % (AUTO) 69.1 % (42.2-75.2); PLATELET COUNT (AUTO) 381 K/uL (140-450); RED BLOOD CELL COUNT(AUTO) 3.43 MIL/uL (4.20-6.10); RED CELL DISTRIBUTION WIDTH 14.5 % (11.6-13.7); WHITE BLOOD COUNT (AUTO) 7.9 K/uL (4.8-10.8)
[2022-11-23 05:50] LABS: ALBUMIN 2.6 g/dL (3.4-5.0); ANION GAP 11.4 (8-16); CARBON DIOXIDE 26.4 mmol/L (21-32); CREATININE 0.7 mg/dL (0.6-1.3); POTASSIUM 3.8 mmol/L (3.5-5.1); TOTAL BILIRUBIN 0.4 mg/dL (0.0-1.0)
--- NOTE | 2022-11-23 06:30 | NUR ---
PATIENT HAS SLEPT THROUGHOUT THE NIGHT. PATIENT HAD VOIDED AND HAD A BM. PATIENT WAS CLEANED AND CHANGED BY ELISABETH FUNG AND MYSELF. PATIENT TOLERATED CHANGING WELL. PATIENT'S FEEDING WAS CHANGED, AND PUMP WAS RESTARTED. FEEDING CURRENTLY RUNNING. WILL ENDORSE TO DAY SHIFT NURSE FOR CARE.
[2022-11-23] MEDS: BLOOD GLUCOSE MONITORING 1 DEV DEV FS SCH ×3 (06:57→17:37)
[2022-11-23] MEDS: INSULIN LISPRO SLIDING SCALE 100 UNITS/ML VIAL SUBQ PRN ×3 (07:04→13:24)
--- NOTE | 2022-11-23 07:45 | NUR ---
ENDORSED TO DAY SHIFT NURSE NICHOLE FOR CONTINUITY OF CARE. PATIENT IS STABLE.
[2022-11-23 08:00] VITALS: BP 148/81
[2022-11-23] MEDS: DOCUSATE 100 MG/10 ML UDC PO SCH (09:01)
[2022-11-23] MEDS: levETIRAcetam 100 MG/ML ORASYR GT SCH ×2 (09:01→21:02)
[2022-11-23] MEDS: amLODIPine 5 MG TAB PO SCH (09:02)
[2022-11-23] MEDS: LOSARTAN 50 MG TAB PO SCH (09:02)
[2022-11-23] MEDS: ASPIRIN 81 MG TAB.CHEW PO SCH (09:03)
[2022-11-23] MEDS: PANTOPRAZOLE 40 MG INJ VIAL IVP SCH (09:04)
[2022-11-23] MEDS: ATORVASTATIN 20 MG TAB PO SCH (09:04)
[2022-11-23] MEDS: CLOPIDOGREL 75 MG TAB PO SCH (09:04)
[2022-11-23] MEDS: carvediloL 6.25 MG TAB GT SCH ×2 (09:04→21:01)
--- NOTE | 2022-11-23 15:18 | NUR ---
CHECKED ON PT DID A PULSE OX CHECK ON PT FAMILY AT BEDSIDE
[2022-11-23 16:00] VITALS: BP 150/74
--- NOTE | 2022-11-23 19:25 | NUR ---
RECEIVED PT FROM AM NURSE FOR CONTINUITY OF CARE. PT IS STABLE
[2022-11-23 20:00] VITALS: BP 134/62
[2022-11-24] VITALS: BP 121/64
[2022-11-24] MEDS: BLOOD GLUCOSE MONITORING 1 DEV DEV FS SCH ×4 (00:42→18:36)
[2022-11-24] MEDS: METOCLOPRAMIDE 10 MG/2 ML INJ VIAL IVP SCH ×4 (00:47→18:31)
--- NOTE | 2022-11-24 01:00 | NUR ---
PATIENT ASLEEP, NO DISTRESS NOTED
[2022-11-24] MEDS: ALBUTEROL SULFATE/IPRATROPIU 3 ML SOL IH SCH (01:20)
[2022-11-24 04:00] VITALS: BP 165/74
[2022-11-24] MEDS: CLONIDINE HYDROCHLORIDE 0.1 MG TAB GT SCH ×3 (04:56→14:40)
[2022-11-24 05:47] LABS: BASOPHILS % (AUTO) 0.4 % (0.0-2.0); EOSINOPHILS # (AUTO) 0.5 K/uL (0-0.4); EOSINOPHILS % (AUTO) 5.9 % (0.0-4.0); HEMATOCRIT 31.6 % (36-52); HEMOGLOBIN 10.9 g/dL (12.0-18.0); LYMPHOCYTES # (AUTO) 1.3 K/uL (2.0-11.5); LYMPHOCYTES % (AUTO) 16.2 % (20.5-51.1); MEAN CORPUSCULAR HEMOGLOBIN 31 pg (27-31); MEAN CORPUSCULAR HGB CONC 34 g/dL (33-37); MEAN CORPUSCULAR VOLUME 88.6 fL (80-94); MONOCYTES # (AUTO) 0.6 K/uL (0.8-1.0); MONOCYTES % (AUTO) 7.5 % (1.7-9.3); NEUTROPHILS # (AUTO) 5.7 K/uL (1.8-7.7); PLATELET COUNT (AUTO) 351 K/uL (140-450); RED BLOOD CELL COUNT(AUTO) 3.56 MIL/uL (4.20-6.10); RED CELL DISTRIBUTION WIDTH 14.4 % (11.6-13.7); WHITE BLOOD COUNT (AUTO) 8.1 K/uL (4.8-10.8)
[2022-11-24] MEDS: INSULIN LISPRO SLIDING SCALE 100 UNITS/ML VIAL SUBQ PRN (05:51)
[2022-11-24 06:05] LABS: ALBUMIN 2.7 g/dL (3.4-5.0); ANION GAP 12.5 (8-16); CARBON DIOXIDE 25.4 mmol/L (21-32); CREATININE 0.7 mg/dL (0.6-1.3); POTASSIUM 3.9 mmol/L (3.5-5.1); TOTAL BILIRUBIN 0.4 mg/dL (0.0-1.0)
--- NOTE | 2022-11-24 07:23 | NUR ---
ENDORSED PT TO AM NURSE FOR CONTINUITY OF CARE. PT IS STABLE
--- NOTE | 2022-11-24 07:24 | NUR ---
RECEIVED PT FROM NIGHTSHIFT NURSE. PT IS AWAKE, RESTING IN BED, PT AOX0 - NONVERBAL BUT WILL NOD YES/NO. IV TO LEFT UPPER ARM CLEAN, INTACT, PATENT. PT ON G-TUBE FEEDING. NO SIGNS OF DISTRESS, PT DENIES PAIN. NO FURTHER NEEDS ARE TO BE MET AT THIS TIME. REORIENTED PT TO CALL LIGHT. BED PLACED IN LOWEST POSITION, CALL LIGHT PLACED WITHIN REACH. WILL CONTINUE WITH PATIENT CARE.
[2022-11-24 08:00] VITALS: BP 157/78
[2022-11-24] MEDS: carvediloL 6.25 MG TAB GT SCH (09:45)
[2022-11-24] MEDS: CLOPIDOGREL 75 MG TAB PO SCH (09:46)
[2022-11-24] MEDS: amLODIPine 5 MG TAB PO SCH (09:46)
[2022-11-24] MEDS: PANTOPRAZOLE 40 MG INJ VIAL IVP SCH (09:46)
[2022-11-24] MEDS: LOSARTAN 50 MG TAB PO SCH (09:46)
[2022-11-24] MEDS: ALBUTEROL SULFATE/IPRATROPIU 3 ML SOL IH PRN (09:46)
[2022-11-24] MEDS: ATORVASTATIN 20 MG TAB PO SCH (09:47)
[2022-11-24] MEDS: levETIRAcetam 100 MG/ML ORASYR GT SCH (09:47)
[2022-11-24] MEDS: ASPIRIN 81 MG TAB.CHEW PO SCH (09:47)
[2022-11-24] MEDS: DOCUSATE 100 MG/10 ML UDC PO SCH (09:47)
[2022-11-24] MEDS: BROMOCRIPTINE 2.5 MG TAB GT SCH (09:53)
[2022-11-24 12:00] VITALS: BP 148/80
[2022-11-24] MEDS ORDERED: CARV6.25 PO (13:49)
[2022-11-24] MEDS ORDERED: [UNRECOGNIZED DRUG - CODE] PO (13:49)
[2022-11-24] MEDS ORDERED: LEVE100S26 IV (13:49)
[2022-11-24] MEDS ORDERED: ASPI-1749 PO (13:49)
[2022-11-24] MEDS ORDERED: CLOP75TA55 PO (13:49)
[2022-11-24] MEDS ORDERED: LANS15EC28 PO (13:49)
[2022-11-24 13:59] VITALS: BP 148/80
[2022-11-24 16:00] VITALS: BP 136/72
--- NOTE | 2022-11-24 16:14 | NUR ---
REPORT GIVEN TO NURSE AT [facility]. FAMILY AT BEDSIDE WITH PT, PT AND FAMILY INFORMED OF DISCHARGE. PT WILL BE TRANSFERRED TO [facility] . PICKUP TIME IS 5PM. DISCHARGE PAPERWORK PREPARED. WILL PROVIDE PT WITH FURTHER DISCHARGE INSTRUCTIONS AND HAVE PT FAMILY SIGN FOR PT. WILL REMOVE IV AND PARK BEFORE TRANSFER.
--- NOTE | 2022-11-24 17:00 | NUR ---
DISCHARGE INSTRUCTIONS PROVIDED. DISCHARGE PAPERWORK SIGNED BY PT [employer] EXAMINER (). IV REMOVED, DRESSING PROVIDED. PARK REMOVED. WAITING FOR TRANSPORT.
--- NOTE | 2022-11-24 19:15 | NUR ---
ENDORSED PT TO NIGHTSHIFT NURSE FOR CONTINUITY OF CARE. PT IS AWAKE, STABLE, NO SIGNS OF DISTRESS, NO REPORTS OF PAIN/DISCOMFORT, FAMILY AT BEDSIDE. WAITING FOR TRANSPORT TO ARRIVE. NO FURTHER NEEDS ARE TO BE MET AT THIS TIME. BED IN LOWEST POSITION, 2 SIDE RAILS UP, CALL LIGHT PLACED WITHIN REACH.
--- NOTE | 2022-11-24 21:10 | NUR ---
[facility] ARRIVED TO PICKUP THE PATIENT . PATIENT IS GOING TO [facility]. ON STABLE CONDITION
== END 2022-11-24 21:15 | DRG 710 ==
LOC: MED 23:35 → MMU 11-10 02:59 → MIC 11-10 04:00 → MTU 11-19 15:04
PROVIDERS: ADMIT Student in an Organized Health Care Education/Training Program; ATTEND Student in an Organized Health Care Education/Training Program
PROC: 5A1955Z Respiratory Ventilation, Greater than 96 Consecutive Hours (ICD-10-PCS; principal; 2022-11-10)
PROC: 0BH17EZ Insertion of Endotracheal Airway into Trachea, Via Natural or Artificial Opening (ICD-10-PCS; 2022-11-10)
PROC: 0BJ10ZZ Inspection of Trachea, Open Approach (ICD-10-PCS; 2022-11-16)
PROC: 0BJ Respiratory System, Inspection (ICD-10-PCS; 2022-11-16)
PROC: 0BJ00ZZ Inspection of Tracheobronchial Tree, Open Approach (ICD-10-PCS; 2022-11-16)
PROC: 5A0935A Assistance with Respiratory Ventilation, Less than 24 Consecutive Hours, High Flow/Velocity Cannula (ICD-10-PCS; 2022-11-18)
PROC: 5A0935A Assistance with Respiratory Ventilation, Less than 24 Consecutive Hours, High Flow/Velocity Cannula (ICD-10-PCS; 2022-11-19)
DX: A41.9 Sepsis, unspecified organism (principal); J96.21 Acute and chronic respiratory failure with hypoxia; J18.9 Pneumonia, unspecified organism; I69.351 Hemiplegia and hemiparesis following cerebral infarction affecting right dominant side; Z93.0 Tracheostomy status; R45.1 Restlessness and agitation; Z20.822 Contact with and (suspected) exposure to COVID-19; I10 Essential (primary) hypertension; E11.9 Type 2 diabetes mellitus without complications; T81.82XA Emphysema (subcutaneous) resulting from a procedure, initial encounter; Y83.8 Other surgical procedures as the cause of abnormal reaction of the patient, or of later complication, without mention of misadventure at the time of the procedure; E66.9 Obesity, unspecified; E78.5 Hyperlipidemia, unspecified; R13.10 Dysphagia, unspecified; Z79.4 Long term (current) use of insulin; Z93.1 Gastrostomy status; Y92.89 Other specified places as the place of occurrence of the external cause; Z68.27 Body mass index [BMI] 27.0-27.9, adult
CPT/HCPCS: 36415; 36600; 71045; 71250; 80048; 80053; 82803; 82948; 83605; 83735; 84484; 85025; 85610; 85730; 87040; 87081; 94002; 94003; 94640; 97112; 97163-GP; 97530; 99291; C9113; J0360; J1100; J1815; J1940; J2270; J2405; J2543; J2704; J2765; J3010; J3370; J3372; J3490; J7030; J7060; J7613; Q0092

== ENCOUNTER 2023-04-15 17:55 | Emergency (ER) | payer OTHER ==
[~2023-04-15] VITALS: Ht 170.2 cm; Wt 71.2 kg
[~2023-04-15 17:55] MED LIST: ACET-1182 PO; AMLO10TA PO; ASPI-1749 PO; ATOR40TA PO; BISA-218 RC; CARV6.25 PO; CLOP75TA55 PO; DOCU-299 PO; HUM SUBQ; HYDR100T49 PO; LANS15EC28 PO; LEVE100S26 IV; LOSA100T2 PO; MAGN400S60 PO; TUBE5SOL28 TD; [UNRECOGNIZED DRUG - CODE] PO; [UNRECOGNIZED DRUG - CODE] SUBQ
[2023-04-15 18:35] VITALS: BP 174/100; PULSE 95; RESP 16; TEMP 97.7; O2SAT 98
== END 2023-04-15 21:09 | disposition home or self-care (01) ==
LOC: MED 17:55
DX: I10 Essential (primary) hypertension (principal); Z43.1 Encounter for attention to gastrostomy; Z86.73 Personal history of transient ischemic attack (TIA), and cerebral infarction without residual deficits; Z79.899 Other long term (current) drug therapy
CPT/HCPCS: 99282